=== PATIENT | male | born 1960 | race Caucasian/White ===

== ENCOUNTER 2018-09-11 06:20 | Day surgery (SDC) | payer BC, SELFPAY ==
[2018-09-11 06:35] VITALS: BP 116/79; PULSE 96; RESP 16; TEMP 37.3; O2SAT 98; BMI 35.4
--- NOTE | 2018-09-11 07:14 | PCM.HP.STD ---
Problem List (1) Personal history of colonic polyps Status: Acute History of Present Illness Date of Admission: 09/11/18 The patient is a 58 year old M who presents for a colonoscopy. Patient had a colonoscopy done 5 years ago and was noted to have colonic polyps and presents today for a repeat colonoscopy. He has had no problems with his bowel or bladder habits. He is not experiencing any abdominal pain. Past Medical History Allergies niacin Allergy (Verified 09/07/18 15:43) Other TURNED RED A BEET Home Medications: Ambulatory Orders Medication Instructions Recorded Amlodipine Besylate [Norvasc] 10 mg PO DAILY 09/07/18 Aspirin E.C. [Ecotrin] 81 mg PO DAILY@0800 09/07/18 Atorvastatin Calcium [Lipitor] 40 mg PO QHS 09/07/18 Hydrochlorothiazide [Hctz] 12.5 mg PO DAILY 09/07/18 Multivitamin [Daily Multiple 1 each PO DAILY 09/07/18 Vitamin] Smoking Status: Never smoker Tobacco Use: Non-smoker - *Family History Maternal History Items: No pertinent history Review of Systems Cardiovascular: Denies: Chest Pain, Chest Pressure, Chest Tightness, Palpitations Respiratory: Denies: Cough, Hemoptysis, Shortness of breath at rest, Shortness of breath upon exertion, Wheezing Gastrointestinal: Denies: Abdominal Pain, Constipation, Diarrhea, Hematemesis, Nausea, Melena, Vomiting VTE Information - Inpt Only VTE Present on Admission: No VTE Mechan Device Prophylaxis: None VTE Pharm Prophylaxis ordered?: No Reason prophylaxis not ordered:: Treatment Not Indicated Patient Problems: Active and Suspected Problems Personal history of colonic polyps (Acute) - Physical Exam General: Alert, Oriented x3 Lungs: Clear to auscultation Cardiovascular: Regular rate, Regular Rhythm, No murmurs Abdomen: Bowel Sounds Present, Soft, Non Tender, Non-Distended Vital Signs Temp Pulse Resp BP Pulse Ox 99.2 F H 96 16 116/79 98 09/11/18 06:35 09/11/18 06:35 09/11/18 06:35 09/11/18 06:35 09/11/18 06:35 Oxygen Delivery Method Room Air Weight: 247 lb 2.211 oz Body Mass Index (BMI) 35.4 Assessment/Plan All Active Problems Personal history of colonic polyps (Acute) My plan will be to perform a colonoscopy. Risk benefits have been reviewed and agrees to proceed.
--- NOTE | 2018-09-11 07:30 | COLBX_PTH ---
PATIENT: GABRIELA SHEIKH LOC: EN U#:[id number] AGE/SX: 58/M ROOM: RE09/11/[address]: Dr. Clark Parks MD : 1960 BED: DIS: 09/11/2018 SPEC #: [id number] RECD: 09/11/18 10:41 STATUS: ALEXX GAGANDEEP #: [id number] COCO: 09/11/18 07:[address]: Clark Parks DEPT: SURGICAL PATHOLOGY RECD BY: Demond Duenas ENTERED: 09/11/18 11:34 SP TYPE: COLON BX BUALDO DR: Dr. Ricky Lovell III, MD Tissues: A - Transverse colon B - Sigmoid colon biopsy Procedures: Surgery Specimen Level IV HEADER OPERATION: Colonoscopy, open access (MAC) PRE-OP DIAGNOSIS: Screening TISSUE SUBMITTED: A. Proximal transverse colon polyp, B. Sigmoid colon polyp MICROSCOPIC DIAGNOSIS A. Proximal transverse colon polyp, biopsy: Cauterized fragments of colonic mucosa with focal adenomatous change. B. Sigmoid colon polyp, biopsy: Tubular adenoma. AM:susan 09/12/18 MICROSCOPIC DESCRIPTION Slides are reviewed. GROSS DESCRIPTION A - Received in fixative is one container labeled with the patient's name and designated proximal transverse colon polyp. The specimen consists of multiple irregular fragments of light shanks soft tissue that in aggregate measure 1 x 0.2 x 0.1 cm. The specimen is totally submitted in one cassette. B - Received in fixative is one container labeled with the patient's name and designated sigmoid colon polyp. The specimen consists of multiple irregular fragments of light shanks soft tissue that in aggregate measure 0.6 x 0.6 x 0.2 cm. The specimen is totally submitted in one cassette. / AM:susan 09/11/18 TC:5 [facility]: [id number] x2
[2018-09-11 07:40] VITALS: BP 116/75; BP 116/79; PULSE 79; RESP 18; TEMP 36.7; O2SAT 92
--- NOTE | 2018-09-11 07:41 | OP.ENDO_ITS ---
Patient Name: Charlie Jacobo Procedure Date: 09/11/2018 7:17 AM Date of : 1960 Age: 58 Procedure: Colonoscopy Indications: High risk colon cancer surveillance: Personal history of colonic polyps Providers: Clark Parks MD Medicines: See the Anesthesia note for documentation of the administered medications Patient Profile: This is a 58 year old male. Refer to note in patient chart for documentation of history and physical. Last Colonoscopy: 5 years ago. Complications: No immediate complications. Procedure: Pre-Anesthesia Assessment: - Prior to the procedure, a History and Physical was performed, and patient medications and allergies were reviewed. The patient's tolerance of previous anesthesia was also reviewed. The risks and benefits of the procedure and the sedation options and risks were discussed with the patient. All questions were answered, and informed consent was obtained. Prior Anticoagulants: The patient has taken no previous anticoagulant or antiplatelet agents. ASA Grade Assessment: II - A patient with mild systemic disease. After reviewing the risks and benefits, the patient was deemed in satisfactory condition to undergo the procedure. After I obtained informed consent, the scope was passed under direct vision. Throughout the procedure, the patient's blood pressure, pulse, and oxygen saturations were monitored continuously. The colonoscope was introduced through the anus and advanced to 3 cm into the ileum. The colonoscopy was performed without difficulty. The patient tolerated the procedure well. The quality of the bowel preparation was good. Scope In: 7:23:52 AM Scope Withdrawal Time 0 hours 10 minutes 42 seconds Scope Out: 7:37:34 AM Total Procedure Duration Time 0 hours 13 minutes 42 seconds Findings: Two sessile polyps were found in the proximal sigmoid colon and proximal transverse colon. The polyps were 3 to 6 mm in size. These polyps were removed with a hot snare. Resection and retrieval were complete. Non-bleeding internal hemorrhoids were found during retroflexion. The hemorrhoids were mild and small. The exam was otherwise without abnormality. Impression: - Two 3 to 6 mm polyps in the proximal sigmoid colon and in the proximal transverse colon, removed with a hot snare. Resected and retrieved. - Non-bleeding internal hemorrhoids. - The examination was otherwise normal. Recommendation: - Discharge patient to home. - Resume previous diet. - Continue present medications. - Await pathology results. - Repeat colonoscopy in 3 years for surveillance. - Return to my office in 1 week. Procedure Code(s): --- Professional --- 91109, Colonoscopy, flexible; with removal of tumor(s), polyp(s), or other lesion(s) by snare technique Diagnosis Code(s): --- Professional --- Z86.010, Personal history of colonic polyps D12.5, Benign neoplasm of sigmoid colon D12.3, Benign neoplasm of transverse colon (hepatic flexure or splenic flexure) K64.8, Other hemorrhoids CPT copyright 2017 [employer]. All rights reserved. The codes documented in this report are preliminary and upon magnetic resonance imaging coordinator review may be revised to meet current compliance requirements. MD Clark Maier MD 09/11/2018 7:41:24 AM This report has been signed electronically. Number of Addenda: 0 Note Initiated On: 09/11/2018 7:17 AM
[2018-09-11 07:45] VITALS: BP 116/79; BP 117/73; PULSE 80; RESP 16; O2SAT 93
[2018-09-11 07:50] VITALS: BP 116/79; BP 121/77; PULSE 75; RESP 18; O2SAT 93
[2018-09-11 07:55] VITALS: BP 116/79; BP 150/88; PULSE 74; RESP 18; TEMP 37.4; O2SAT 98
[2018-09-11 08:11] VITALS: BP 116/79
== END 2018-09-11 08:22 | disposition home or self-care (01) ==
LOC: EN 06:21 → AC 06:23
PROVIDERS: Family Provider Family Medicine; PCP Family Medicine; Referring Provider Surgery; Visit Provider Surgery
PROC: 0DJD8ZZ Inspection of Lower Intestinal Tract, Via Natural or Artificial Opening Endoscopic (ICD-10-PCS; CPT 45378; principal; 2018-09-11 07:25)
DX: Z12.11 Encounter for screening for malignant neoplasm of colon (principal); D12.5 Benign neoplasm of sigmoid colon; D12.3 Benign neoplasm of transverse colon; K64.8 Other hemorrhoids; Z86.010 Personal history of colon polyps; Z79.82 Long term (current) use of aspirin; I10 Essential (primary) hypertension; E78.00 Pure hypercholesterolemia, unspecified
CPT/HCPCS: 45385; 88305; J1610

== ENCOUNTER 2019-02-25 13:26 | Emergency (ER) | payer BC, SELFPAY ==
[2019-02-25 13:27] VITALS: BP 157/86; PULSE 85; RESP 16; TEMP 36.6; O2SAT 97; BMI 35.4
--- NOTE | 2019-02-25 13:51 | RAD_ITS ---
STUDY: X-RAY CHEST REASON FOR EXAM: Male, 58 years old. Cough TECHNIQUE: PA and lateral views of the chest. COMPARISON: None. FINDINGS: On lateral view, there is mild reticulation projecting over the cardiac silhouette, likely lingular. There is no demonstrated pleural abnormality. Normal size heart. Normal mediastinum and netta. Normal visualized pulmonary arteries. Normal visualized aortic arch and descending thoracic aorta. Normal visualized thoracic spine. Normal visualized ribs, clavicles, and shoulders. There is no demonstrated abnormality of the visualized soft tissue structures of the upper abdomen. RAD/Chest PA and Lateral IMPRESSION: Mild lingular opacity could represent atelectasis versus early pneumonitis/pneumonia. Electronically Signed: Warner Underwood MD (Brooks) at 14:11 EST , Service support ,
--- NOTE | 2019-02-25 13:53 | ED.VIS.GEN ---
History of Present Illness Chief Complaint: Shortness of Breath Informant: Patient Onset: Month(s) Context: Gradual Onset Timing: Intermittent Narrative: Patient is a 58-year-old male with history of hypertension presenting with worsening cough. Patient states for the past 6 months at least he has had a dry cough in the mornings. He notes in the mornings he feels he is a lot of mucus in his throat. He sometimes feels short of breath because of the coughing. This seems to have progressed over the past month. He does correlate this with restarting lisinopril. Patient is placed on Zyrtec which he has been taking for the symptoms. He currently denies any symptoms including sore throat, fever, shortness of breath or chest pain. He notes earlier today he was sweating but states it was while he was helping his father move things in the basement in the basement was very hot. He felt that the sweating was appropriate for his amount of exertion. Patient is also concerned because he has a family history of COPD and a personal history of secondhand smoke exposure so he wanted to make sure that that was not what was wrong with him. Patient admits to reflux especially when he eats certain items. He takes Tums for the but is not on any regular antacid. He is never been evaluated for GERD. He is never had an EGD. Past Medical History - Allergies and Home Meds Allergies/Adverse Reactions: Allergies niacin Allergy (Verified 02/25/19 13:27) Other TURNED RED A BEET Primary Care Physician: Ricky Lovell III, MD [Primary Care Provider] - Smoking Status: Never smoker - Family History Maternal Family History: Reports: No pertinent history Review of Systems All systems negative except as indicated ENT: Reports: Sore throat Respiratory: Reports: Cough Physical Exam Vital Signs/Narrative: Vital Signs Temp Pulse Resp BP Pulse Ox 02/25/19 13:27 97.9 F 85 16 157/86 H 97 Inital Vital Signs reviewed: Yes General: Well nourished, Well developed, No Acute Distress Head: Normocephalic, Atraumatic Eyes: Perrl, EOMI ENT: Moist mucous membranes, No rhinorrhea, TM's clear, - - Mild cobblestoning and erythema of the pharynx Neck: Supple, Nontender Cardiovascular: Regular rate, Regular rhythm, No murmurs Respiratory: No distress, CTA bilaterally, Chest nontender. Negative for: Rhonchi, Wheezing, Chest tenderness Abdomen: Soft, Nontender, Nondistended, Normal bowel sounds Back: Nontender, Normal Inspection Extremities: Nontender, No edema Skin: Normal color, No rash Neurological: Alert, Oriented x3, Cranial nerves II-XII grossly intact, Normal Strength, Normal Sensation Psychological: Normal affect, Normal Mood Diagnostic/Tx/Re-eval Chest X-Ray - ED: 2 View, Read by Radiologist, Left Infiltrate - possible Diagnostic Data Chest X-Ray 02/25/19 13:51 IMPRESSION: Mild lingular opacity could represent atelectasis versus early pneumonitis/pneumonia. Electronically Signed: Warner Underwood MD (Brooks) at 14:11 EST , Service support , - Medical Decision Making He was evaluated for worsening of a chronic cough that he has in the morning. Seems to get better throughout the day. Patient illicits frequent heartburn and uses tums at home. Lungs are clear. He does not have associated fever or other symptoms consistent with pneumonia. Chest x-ray shows small area of atelectasis versus infiltrate versus inflammation of the lingula. Clinically patient does not have pneumonia. Patient is given a prescription for azithromycin to take if he starts to develop further signs of pneumonia such as fever, worsening productive cough or malaise. He is agreeable to this plan. I suspect his morning cough and sore throat is more from GERD. Patient be started on Pepcid. He does not have any chest pain I do not suspect ACS. He is encouraged heavily to follow-up with his primary care doctor. Patient is counseled on signs and symptoms requiring return to the emergency room. Patient verbalizes agreement and understand this plan. Patient discharged home in stable and improved condition. ED Disposition - Plan for ED Patient: Disposition: Home or Assisted Living Diagnosis: Cough in adult Instructions: COUGH, Chronic, Uncertain Cause, (Adult) Prescriptions: Famotidine [Pepcid] 20 mg PO BID #28 tab Prescription Printed Azithromycin [Zithromax Z-Vladislav] 250 mg PO UD #1 box Prescription Printed Referrals: Ricky Lovell III, MD [Primary Care Provider] - Additional Instructions: I suspect your cough might be from acid reflux. That is why you have been started on Pepcid. Your x-ray showed a possible subtle area of pneumonia versus atelectasis (which is benign). You are given a course of oixw-lwy-imx antibiotics. If you develop further symptoms of pneumonia such as fever, worsening cough/sputum production or shortness of breath please take the complete course of antibiotics. Please follow-up with your primary care doctor within the next 2 weeks.
== END 2019-02-25 15:18 | disposition home or self-care (01) ==
PROVIDERS: Emergency Provider Emergency Medicine; Family Provider Family Medicine; PCP Family Medicine
DX: R05 Cough (principal); I10 Essential (primary) hypertension
CPT/HCPCS: 71046; 99282

== ENCOUNTER 2020-07-08 16:26 | Outpatient (RCR) | payer BC, SELFPAY ==
[2020-07-08] MEDS: COVID-19 VACC, MRNA(PFIZER)/PF 30 MCG/0.3 ML SYRINGE IM (17:09)
[2020-07-29] MEDS: COVID-19 VACC, MRNA(PFIZER)/PF 30 MCG/0.3 ML SYRINGE IM (16:54)
== END 2020-07-08 23:59 ==
LOC: IMMUN 16:26
PROVIDERS: PCP Family Medicine; Visit Provider Family Medicine
DX: Z23 Encounter for immunization (principal)
CPT/HCPCS: 0001A; 0002A; 91300

== ENCOUNTER 2021-10-02 06:22 | Day surgery (SDC) | payer OTHER, SELFPAY ==
[2021-10-02] VITALS (10 sets, daily range): BP systolic 81–141; BP diastolic 60–85; PULSE 63–80; RESP 16–17; TEMP 36.7–37.2; O2SAT 96–97; BMI 34.5
--- NOTE | 2021-10-02 06:52 | PCM.HP.STD ---
HPI - General HPI Narrative GABRIELA SHEIKH, is a 61 M who presents for surveillance colonoscopy. He has previously had a history of colon polyps. Most recent colonoscopy was August 2018. He otherwise enjoys good health. He denies bright red blood per rectum or melena. [facility] Medical History (Updated 09/29/21 @ 10:46 by Ashwini Oliveros) Allergic bronchitis without complication GERD (gastroesophageal reflux disease) High cholesterol History of pain when walking History of stress test Hypertension Non-smoker Primary osteoarthritis, unspecified shoulder Pure hypercholesterolemia, unspecified Wears contact lenses Home Medications amlodipine 10 mg PO QHS 09/07/18 [History Last Taken Unknown] aspirin 81 mg PO DAILY@0800 09/07/18 [History Last Taken Unknown] atorvastatin 40 mg PO QHS 09/07/18 [History Last Taken Unknown] hydrochlorothiazide 12.5 mg PO DAILY 09/07/18 [History Last Taken Unknown] multivitamin 1 ea PO DAILY 09/07/18 [History Last Taken Unknown] lisinopril 5 mg PO QHS 02/25/19 [History Last Taken Unknown] Lactobacill acidophilus-L.helvetic-B.bifidum 250 million cell capsule 1 cap PO DAILY 09/01/21 [History Last Taken Unknown] omega 9-wvm-hwq-fish oil 300 mg-1,000 mg capsule 1 cap PO DAILY 09/01/21 [History Last Taken 09/28/21] omeprazole 20 mg capsule,delayed release 20 mg PO DAILY 09/01/21 [History Last Taken Unknown] Allergy/AdvReac Type Severity Reaction Status Date / Time niacin Allergy Other Verified 09/01/21 09:49 Surgical History (Updated 09/29/21 @ 10:46 by Ashwini Oliveros) History of detached retina repair History of vasectomy Hx of colonoscopy with polypectomy Social History Smoking Status: Never smoker ROS Constitutional Constitutional: Reports systems reviewed and no addt'l complaints, except as documented Cardiovascular Cardiovascular: Denies chest pain Respiratory/Chest Respiratory/Chest: Denies shortness of breath at rest Gastrointestinal Gastrointestinal: Denies abdominal pain, change in bowel habits, hematochezia or melena Physical Exam Const alert, oriented x3 and no apparent distress General Appearance: cooperative and comfortable Eyes General Eye: normal appearance of both eyes Neck General: normal visual inspection Chest inspection of chest normal Resp Effort and Inspection: able to speak in complete sentences and symmetric chest movement Auscultation: clear to auscultation bilaterally Cardio regular rate and regular rhythm GI soft to palpation, non-tender and non-distended Extremity no calf tenderness Neuro oriented x3 Psych thought process normal Assessment & Plan Assessment/Plan (1) Personal history of colonic polyps: PLAN: The patient presents via open access today. We plan to pursue a surveillance colonoscopy because of personal history of colon polyps. He is aware of the technique, benefit, risk, alternatives. We will proceed as noted. Hang Lovell M.D., F.A.C.S.
[2021-10-02] MEDS: Lactated Ringers 1,000 ML 15 ML IV (07:02)
[2021-10-02] MEDS: Midazolam 5 MG/ML Syringe (07:25)
--- NOTE | 2021-10-02 07:30 | COLBX_PTH ---
PATIENT: GABRIELA SHEIKH LOC: EN U#:[id number] AGE/SX: 61/M ROOM: RE10/02/[address]: Dr. Hang Lovell MD : 1960 BED: DIS: 10/02/2021 SPEC #: [id number] RECD: 10/02/21 12:16 STATUS: ALEXX GAGANDEEP #: [id number] COCO: 10/02/21 07:[address]: Hang Lovell DEPT: SURGICAL PATHOLOGY RECD BY: Pari Jones ENTERED: 10/02/21 12:41 SP TYPE: COLON BX OTHR DR: Dr. Navneet Anderson MD Tissues: A - COLON BIOPSY B - Transverse colon C - Transverse colon Procedures: Surgery Specimen Level IV HEADER OPERATION: Colonoscopy ? open access (MOD) PRE-OP DIAGNOSIS: Colonic polyps TISSUE SUBMITTED: A ? Polyp at hepatic flexure biopsy, B ? Polyp at mid transverse biopsy, C ? Polyp at mid transverse colon MICROSCOPIC DIAGNOSIS A. Polyp at hepatic flexure, biopsy: Tubular adenoma. B. Mid transverse colon polyp, biopsy: Tubular adenoma. C. Polyp at mid transverse colon, biopsy: Fragments of tubular adenoma. СЕРГЕЙ:susan 10/05/2021 MICROSCOPIC DESCRIPTION Slides are reviewed. GROSS DESCRIPTION A - Received in fixative is one container labeled with the patient's name and designated biopsy hepatic flexure polyp. The specimen consists of one irregular fragment of light shanks soft tissue that measures 0.4 x 0.4 x 0.1 cm. The specimen is totally submitted in one cassette. B - Received in fixative is one container labeled with the patient's name and designated biopsy mid transverse polyp. The specimen consists of one irregular fragment of light shanks soft tissue that measures 0.3 x 0.3 x 0.1 cm. The specimen is totally submitted in one cassette. C - Received in fixative is one container labeled with the patient's name and designated polyp at mid transverse colon. The specimen consists of two irregular fragments of light shanks soft tissue that in aggregate measure 0.9 x 0.5 x 0.1 cm. The specimen is totally submitted in one cassette. / СЕРГЕЙ:susan 10/02/2021 TC:1 CPT: 16976 x3
--- NOTE | 2021-10-02 07:58 | OP.COLON_ITS ---
Patient Name: Charlie Jacobo Procedure Date: 10/02/2021 7:26 AM Date of : 1960 Age: 61 Procedure: Colonoscopy Indications: High risk colon cancer surveillance: Personal history of colonic polyps Providers: Hang Lovell MD Medicines: Midazolam 4 mg IV, Meperidine 100 mg IV Patient Profile: Last Colonoscopy: August 2018. Complications: No immediate complications. Procedure: Pre-Anesthesia Assessment: - Prior to the procedure, a History and Physical was performed, and patient medications and allergies were reviewed. The patient's tolerance of previous anesthesia was also reviewed. The risks and benefits of the procedure and the sedation options and risks were discussed with the patient. All questions were answered, and informed consent was obtained. Prior Anticoagulants: The patient has taken no previous anticoagulant or antiplatelet agents. ASA Grade Assessment: II - A patient with mild systemic disease. After reviewing the risks and benefits, the patient was deemed in satisfactory condition to undergo the procedure. After I obtained informed consent, the scope was passed under direct vision. Throughout the procedure, the patient's blood pressure, pulse, and oxygen saturations were monitored continuously. The colonoscope was introduced through the anus and advanced to the cecum, identified by appendiceal orifice and ileocecal valve. The colonoscopy was performed without difficulty. The patient tolerated the procedure well. The quality of the bowel preparation was good. The ileocecal valve and the appendiceal orifice were photographed. Moderate Sedation: Moderate (conscious) sedation was personally administered by the endoscopist. The following parameters were monitored: oxygen saturation, heart rate, blood pressure, and response to care. Total physician intraservice time was 15 minutes. Scope In: 7:33:55 AM Scope Withdrawal Time 0 hours 11 minutes 13 seconds Scope Out: 7:51:10 AM Total Procedure Duration Time 0 hours 17 minutes 15 seconds Findings: The digital rectal exam findings include non-thrombosed internal hemorrhoids and internal hemorrhoids that prolapse with straining, but spontaneously regress to the resting position (Grade II). Pertinent negatives include normal prostate (size, shape, and consistency). A 4 mm polyp was found in the hepatic flexure. The polyp was sessile. The polyp was removed with a cold biopsy forceps. Resection and retrieval were complete. A 5 mm polyp was found in the mid transverse colon. The polyp was sessile. The polyp was removed with a cold biopsy forceps. Resection and retrieval were complete. A 9 mm polyp was found in the mid transverse colon. The polyp was sessile. The polyp was removed with a hot snare. Resection and retrieval were complete. To prevent bleeding post-intervention, one hemostatic clip was successfully placed. There was no bleeding at the end of the procedure. Impression: - Non-thrombosed internal hemorrhoids and internal hemorrhoids that prolapse with straining, but spontaneously regress to the resting position (Grade II) found on digital rectal exam. - One 4 mm polyp at the hepatic flexure, removed with a cold biopsy forceps. Resected and retrieved. - One 5 mm polyp in the mid transverse colon, removed with a cold biopsy forceps. Resected and retrieved. - One 9 mm polyp in the mid transverse colon, removed with a hot snare. Resected and retrieved. Clip was placed. Recommendation: - Repeat colonoscopy in 5 years for surveillance. - Telephone my office for pathology results in 1 week. - Continue present medications. Procedure Code(s): --- Professional --- 97853, Colonoscopy, flexible; with removal of tumor(s), polyp(s), or other lesion(s) by snare technique 60016, 61, Colonoscopy, flexible; with biopsy, single or multiple 32015, 61, Moderate sedation services provided by the same physician or other qualified health career technical education teacher performing the diagnostic or therapeutic service that the sedation supports, requiring the presence of an independent trained observer to assist in the monitoring of the patient's level of consciousness and physiological status; initial 15 minutes of intraservice time, patient age 5 years or older Diagnosis Code(s): --- Professional --- Z86.010, Personal history of colonic polyps K64.1, Second degree hemorrhoids D12.3, Benign neoplasm of transverse colon (hepatic flexure or splenic flexure) CPT copyright 2017 [employer]. All rights reserved. The codes documented in this report are preliminary and upon associate professor of library science review may be revised to meet current compliance requirements. Hang Lovell MD 10/02/2021 7:58:00 AM This report has been signed electronically. Number of Addenda: 0 Note Initiated On: 10/02/2021 7:26 AM
--- NOTE | 2021-10-02 07:58 | OP.CCLET_ITS ---
10/02/2021 Navneet Anderson Md Re : Colonoscopy procedure for Charlie Mercedes Justin This procedure was performed on Saturday, October 02, 2021. My impressions and recommendations are as follows: Impressions : - Non-thrombosed internal hemorrhoids and internal hemorrhoids that prolapse with straining, but spontaneously regress to the resting position (Grade II) found on digital rectal exam. - One 4 mm polyp at the hepatic flexure, removed with a cold biopsy forceps. Resected and retrieved. - One 5 mm polyp in the mid transverse colon, removed with a cold biopsy forceps. Resected and retrieved. - One 9 mm polyp in the mid transverse colon, removed with a hot snare. Resected and retrieved. Clip was placed. Recommendations : - Repeat colonoscopy in 5 years for surveillance. - Telephone my office for pathology results in 1 week. - Continue present medications. My findings are described in the full procedure note, which is enclosed. If I can be of further assistance, please feel free to contact me at Doctor phone number(s): Work: . Sincerely, Hang Lovell MD 10/02/2021 7:58:00 AM This report has been signed electronically.
== END 2021-10-02 09:00 | disposition home or self-care (01) ==
LOC: EN 06:23 → AC 06:27
PROVIDERS: PCP Family Medicine; Referring Provider Family Medicine; Visit Provider Surgery
PROC: 0DJD8ZZ Inspection of Lower Intestinal Tract, Via Natural or Artificial Opening Endoscopic (ICD-10-PCS; CPT 45378; principal; 2021-10-02 07:25)
DX: Z12.11 Encounter for screening for malignant neoplasm of colon (principal); Z86.010 Personal history of colon polyps; I10 Essential (primary) hypertension; K64.8 Other hemorrhoids; E78.00 Pure hypercholesterolemia, unspecified; D12.3 Benign neoplasm of transverse colon
CPT/HCPCS: 45385; 45380; 88305; 99152; 99153; J7120

== ENCOUNTER → 2022-02-16 | Outpatient (CLI) | payer OTHER, SELFPAY ==
[2022-02-16 10:45] LABS: ALB/GLOB Ratio 1.1 RATIO (0.9-2.4); AST(SGOT) 19 U/L (15-37); Alanine Aminotransfer ALT/SGPT 33 U/L (16-61); Albumin, Serum 3.9 g/dL (3.2-5.0); Alkaline Phosphatase 74 U/L (45-117); Anion Gap 8 (5-15); BUN 13 mg/dL (7-18); BUN/Creat Ratio 12.9 RATIO (10-20); Calcium,Total 9.5 mg/dL (8.5-10.1); Chloride 107 mmol/L (98-107); Cholesterol 128 mg/dL (200); Creatinine, Serum 1.01 mg/dL (0.70-1.30); EST Glomerular Filtration Rate 80 mL/min (>60); Est Glom Filt Rate - Afr Amer 97 mL/min (>60); Globulin 3.5 g/dL (2.2-4.2); Glucose 105 mg/dL (74-106); High Density Lipoprotein 47 mg/dL; PSA,Total - Annual Screen 3.26 ng/mL (0.00-4.00); Potassium 3.8 mmol/L (3.5-5.1); Protein, Total 7.4 g/dL (6.4-8.2); Sodium Level 140 mmol/L (136-145); Triglycerides 173 mg/dL; Very Low Density Lipoprotein 35 mg/dL (5-40)
[2022-02-16 10:58] LABS: Microalbumin,Random Urine 16.9 mg/L (NO RANGE EST.); Microalbumin:Creatinine Ratio 22.1 mg/g CRE (<30 mg/g CRE)
== END | disposition home or self-care (01) ==
LOC: MFPLAB 08:04
PROVIDERS: PCP Family Medicine; Referring Provider Family Medicine; Visit Provider Family Medicine
DX: Z00.00 Encounter for general adult medical examination without abnormal findings (principal); Z12.5 Encounter for screening for malignant neoplasm of prostate
CPT/HCPCS: 36415; 80053; 80061; 82043; 82570; 84153; G0103

== ENCOUNTER → 2022-09-17 | Outpatient (CLI) | payer OTHER, SELFPAY ==
--- NOTE | 2022-09-17 16:30 | RAD_ITS ---
STUDY: X-RAY - PARANASAL SINUSES REASON FOR EXAM: Male, 62 years old. recurrent sinusitis TECHNIQUE: 3 view(s) of the paranasal sinuses were obtained. COMPARISON: None. FINDINGS: Normal visualized frontal, maxillary, ethmoidal and sphenoid sinuses. Normal visualized facial bones. The soft tissue structures are unremarkable. RAD/Sinuses min 3 Views IMPRESSION: Normal x-rays of the paranasal sinuses. Electronically Signed: Abdullahi Samuels MD at 19:36 EDT ,
[2022-09-17 18:01] LABS: Anion Gap 11 (5-15); BUN 11 mg/dL (7-18); BUN/Creat Ratio 11.1 RATIO (10-20); Calcium,Total 9.3 mg/dL (8.5-10.1); Chloride 106 mmol/L (98-107); Creatinine, Serum 0.99 mg/dL (0.70-1.30); EST Glomerular Filtration Rate 82 mL/min (>60); Est Glom Filt Rate - Afr Amer 99 mL/min (>60); Glucose 122 mg/dL (74-106); Potassium 3.8 mmol/L (3.5-5.1); Sodium Level 138 mmol/L (136-145)
== END | disposition home or self-care (01) ==
LOC: MTLAB 16:23
PROVIDERS: PCP Family Medicine; Referring Provider Family Medicine; Visit Provider Family Medicine
DX: I10 Essential (primary) hypertension (principal); J30.9 Allergic rhinitis, unspecified
CPT/HCPCS: 36415; 70220; 80048

== ENCOUNTER → 2023-02-17 | Outpatient (CLI) | payer OTHER, SELFPAY ==
[2023-02-17 11:34] LABS: ALB/GLOB Ratio 1.2 RATIO (0.9-2.4); AST(SGOT) 14 U/L (15-37); Alanine Aminotransfer ALT/SGPT 32 U/L (16-61); Albumin, Serum 3.9 g/dL (3.2-5.0); Alkaline Phosphatase 92 U/L (45-117); Anion Gap 6 (5-15); BUN 12 mg/dL (7-18); BUN/Creat Ratio 11.7 RATIO (10-20); Calcium,Total 9.2 mg/dL (8.5-10.1); Chloride 108 mmol/L (98-107); Cholesterol 116 mg/dL (200); Creatinine, Serum 1.03 mg/dL (0.70-1.30); EST Glomerular Filtration Rate 78 mL/min (>60); Est Glom Filt Rate - Afr Amer 95 mL/min (>60); Globulin 3.3 g/dL (2.2-4.2); Glucose 108 mg/dL (74-106); High Density Lipoprotein 47 mg/dL; Potassium 4.2 mmol/L (3.5-5.1); Protein, Total 7.2 g/dL (6.4-8.2); Sodium Level 141 mmol/L (136-145); Triglycerides 182 mg/dL; Very Low Density Lipoprotein 36 mg/dL (5-40)
[2023-02-17 11:36] LABS: Microalbumin,Random Urine 37.9 mg/L (NO RANGE EST.)
== END | disposition home or self-care (01) ==
LOC: MFPLAB 08:00
PROVIDERS: PCP Family Medicine; Visit Provider Family Medicine
DX: I10 Essential (primary) hypertension (principal); E78.00 Pure hypercholesterolemia, unspecified
CPT/HCPCS: 36415; 80053; 80061; 82043

== ENCOUNTER → 2023-08-29 | Outpatient (CLI) | payer OTHER, SELFPAY ==
[2023-08-29 11:01] LABS: Anion Gap 5 (5-15); BUN 17 mg/dL (7-18); BUN/Creat Ratio 15.9 RATIO (10-20); Calcium,Total 9.4 mg/dL (8.5-10.1); Chloride 107 mmol/L (98-107); Creatinine, Serum 1.07 mg/dL (0.70-1.30); EST Glomerular Filtration Rate 75 mL/min (>60); Est Glom Filt Rate - Afr Amer 90 mL/min (>60); Glucose 111 mg/dL (74-106); Sodium Level 139 mmol/L (136-145)
[2023-08-29 11:06] LABS: Hemoglobin A1c 5.2 % (3.8-5.6)
== END | disposition home or self-care (01) ==
LOC: MFPLAB 08:52
PROVIDERS: PCP Family Medicine; Visit Provider Family Medicine
DX: I10 Essential (primary) hypertension (principal); E66.01 Morbid (severe) obesity due to excess calories
CPT/HCPCS: 36415; 80048; 83036

== ENCOUNTER → 2024-03-06 | Outpatient (CLI) | payer OTHER, SELFPAY ==
[2024-03-06 18:08] LABS: Anion Gap 8 (5-15); BUN 17 mg/dL (7-18); BUN/Creat Ratio 16.8 RATIO (10-20); Calcium,Total 9.2 mg/dL (8.5-10.1); Chloride 106 mmol/L (98-107); Creatinine, Serum 1.01 mg/dL (0.70-1.30); EST Glomerular Filtration Rate 80 mL/min (>60); Est Glom Filt Rate - Afr Amer 96 mL/min (>60); Glucose 101 mg/dL (74-106); Potassium 3.5 mmol/L (3.5-5.1); Sodium Level 140 mmol/L (136-145)
== END | disposition home or self-care (01) ==
LOC: MFPLAB 16:09
PROVIDERS: PCP Family Medicine; Visit Provider Family Medicine
DX: I10 Essential (primary) hypertension (principal)
CPT/HCPCS: 36415; 80048

== ENCOUNTER → 2024-10-09 | Outpatient (CLI) | payer OTHER, SELFPAY ==
--- OUTSIDE RECORDS SUMMARY | 2024-10-09 08:39 | XMS RPT_ITS | CCD ---
Author Organization [facility] Care Team Providers Care Home Health Clinical Liaison Name Role Phone Josefina Villalba Attending Provider Unavailable Dr. Hang Lovell Attending Provider [phone] Dr. Hang Lovell Other Provider Dr. Navneet Anderson Primary Care Provider Dr. Navneet Anderson Referring Provider Navneet Anderson Primary Care Unavailable Navneet Anderson Attending Unavailable Navneet Anderson Primary Care Unavailable Navneet Anderson Attending Unavailable Allergies Allergy Classification Reported Allergen(s) Allergy Type Date of Onset Reaction(s) Facility (5 sources) Niacin Drug Allergy 10-02-2021 Other [facility] (1 source) Niacin Drug Allergy 10-02-2021 [facility] Repository Medications Current Medications Medication Drug Class(es) Dates Sig (Normalized) Sig (Original) amLODIPine 10 mg oral tablet (5 sources) Dihydropyridine Calcium Channel Mily Start: 09-07-2018 take 10 mg by mouth at bedtime Amlodipine Active 10 MG PO AT BEDTIME September 07, 2018 12:00am aspirin 81 mg delayed release oral tablet (5 sources) Platelet Aggregation Inhibitor, Nonsteroidal Anti-inflammatory Drug Start: 09-07-2018 take 81 mg by mouth once daily Aspirin Active 81 MG PO DAILY@0800 September 07, 2018 12:00am atorvastatin 40 mg oral tablet (5 sources) HMG-CoA Reductase Inhibitor Start: 09-07-2018 take 40 mg by mouth at bedtime Atorvastatin Active 40 MG PO AT BEDTIME September 07, 2018 12:00am [place] 3-Azi-Lkz-Fish Oil (5 sources) Start: 09-01-2021 take 300-1000 mg by mouth once daily [place] 4-Mdu-Zkp-Fish Oil (Fish Oil) 300-1,000 mg capsule Active 1 CAP PO DAILY September 01, 2021 9:45am Start: 09-01-2021 take 300-1000 mg by mouth once daily [place] 2-Ukk-Gjz-Fish Oil (Fish Oil) 300-1,000 mg capsule Active 1 CAP PO DAILY September 01, 2021 12:00am hydroCHLOROthiazide 25 mg oral tablet (5 sources) Thiazide Diuretic Start: 09-07-2018 take 12.5 mg by mouth once daily Hydrochlorothiazide Active 12.5 MG PO DAILY September 07, 2018 12:00am L.Acidophilus,Helvet-B.B ifidum (Acidophilus Probiotic Complex) 250 million cell capsule (5 sources) Start: 09-01-2021 take 1 capsule by mouth once daily L.Acidophilus,Helvet-B. Bifidum (Acidophilus Probiotic Complex) 250 million cell capsule Active 1 CAP PO DAILY September 01, 2021 9:46am Start: 09-01-2021 take 1 capsule by mouth once daily L.Acidophilus,Helvet-B.Bifidum (Acidophi ashley Probiotic Complex) 250 million cell capsule Active 1 CAP PO DAILY September 01, 2021 12:00am lisinopril 5 mg oral tablet (5 sources) Angiotensin Converting Enzyme Inhibitor Start: 02-25-2019 take 5 mg by mouth at bedtime Lisinopril Active 5 MG PO AT BEDTIME February 25, 2019 12:00am Multivitamin preparation (5 sources) Start: 09-07-2018 Multivitamin Active 1 EACH PO DAILY September 07, 2018 3:43pm Start: 09-07-2018 Multivitamin A ctive 1 EACH PO DAILY September 07, 2018 12:00am omeprazole 20 mg delayed release oral capsule (5 sources) Proton Pump Inhibitor Start: 09-01-2021 take 20 mg by mouth once daily Omeprazole Active 20 MG PO DAILY September 01, 2021 12:00am Completed/Discontinued Medications Medication Drug Class(es) Dates Sig (Normalized) Sig (Original) cetirizine hydrochloride 10 mg oral capsule (5 sources) Histamine-1 Receptor Antagonist Start: 02-25-2019 End: 09-01-2021 take 10 mg by mouth once daily Cetirizine Discontinued 10 MG PO DAILY February 25, 2019 12:00am September 01, 2021 9:44am Problems Problem Classification Problem Date Documented Da te Episodic/Chronic Essential hypertension (1 source) Essential (primary) hypertension; Translations: [Essential (primary) hypertension] Onset: 04-02-2024 Chronic Other and unspecified benign neoplasm (5 sources) History of polyp of colon; Translations: [Personal history of colonic polyps] 02-25-2019 Episodic Other and unspecified benign neoplasm (1 source) Personal history of colonic polyps; Translations: [Personal history of colonic polyps] Episodic Other lower respiratory disease (5 sources) Cough; Translations: [Cough in adult] 02-26-2019 Episodic Other screening for suspected conditions (not mental disorders or infectious disease) (5 sources) Patient encounter status; Translations: [Encounter for screening for malignant neoplasm of colon] 09-01-2021 Episodic Results Test Name Value Interpretation Reference Range Facility Basic Metabolic Profile (BMP )on 03-06-2024 BUN/CRE 16.8 RATIO Normal 10-20 [facility] Comment on above: Order Comment: Order Date: 03/06/24 Order Info: 0667-1 - BMP Performed By: #### L 500.2500 #### [facility] [address] [place], [address] CA,Total 9.2 mg/dL Normal 8.5-10.1 [facility] Comment on above: Order Comment: Order Date: 03/06/24 Order Info: 0667- - BMP Performed By: #### L 500.2500 #### [facility] [address] [place], [address] Chloride [Moles/Vol] 106 mmol/L Normal 98-107 [facility] Comment on above: Order Comment: Order Date: 03/06/24 Order Info: 0667- - BMP Performed By: #### L 500.2500 #### [facility] [address] [place], [address] CO2 [Moles/Vol] 26.0 mmol/L Normal 21.0-32.0 [facility] Comment on above: Order Comment: Order Date: 03/06/24 Order Info: 0667- - BMP Performed By: #### L 500.2500 #### [facility] [address] [place], [place], [address] Creatinine [Mass/Vol] 1.01 mg/dL Normal 0.70-1.30 [facility] Comment on above: Order Comment: Order Date: 03/06/24 Order Info: 0667- - [facility] Result Comment: The validity of the calculated GFR GFRAA in patients over 70 years has not been determined. Clinical correlation is essential. Performed By: #### L 500.2500 #### [facility] [address] [place], [address] EST GFR - AA 96 mL/min Normal >60 [facility] Comment on above: Order Comment: Order Date: 03/06/24 Order Info: 06 - [facility] Result Comment: Afri can Grenadian GFR Calc Performed By: #### L 500.2500 #### [facility] [address] [place], [address] GAP 8 Normal 5-15 [facility] Comment on above: Order Comment: Order Date: 03/06/24 Order Info: 0667 - BMP Performed By: #### L 500.2500 #### [facility] [address] [place], [address] GFR/1.73 sq M.predicted among non-blacks MDRD (S/P/Bld) [Vol rate/Area] 80 mL/min/{1.73_m2} Normal >60 [facility] Comment on above: Order Comment: Order Date: 03/06/24 Order Info: 0667- - [facility] Result Comment: Non- GFR Calc Performed By: #### L 500.2500 #### [facility] [address] [place], [place], [id number] ([address] Glucose [Mass/Vol] 101 mg/dL Normal 74-106 [facility] Comment on above: Order Comment: Order Date: 03/06/24 Order Info: 0667- - BMP Result Comment: Fast ing Glucose result from 100 to 125 mg/dL suggests IMPAIRED HOMEOSTASIS per A.D.A. criteria. Performed By: #### L 500.2500 #### [facility] [address] [place], [address] Potassium [Moles/Vol] 3.5 mmol/L Normal 3.5-5.1 [facility] Comment on above: Order Comment: Order Date: 03/06/24 Order Info: 666-04 - BMP Performed By: #### L 500.2500 #### [facility] [address] [place], [address] Sodium [Moles/Vol] 140 mmol/L Normal 136-145 [facility] Comment on above: Order Comment: Order Date: 03/06/24 Order Info: 666-04 - BMP Performed By: #### L 500.2500 #### [facility] [address] [place], [address] Urea nitrogen [Mass/Vol] 17 mg/dL Normal 7-18 [facility] Comment on above: Order Comment: Order Date: 03/06/24 Order Info: 666-04 - BMP Performed By: #### L 500.2500 #### [facility] [address] [place], [address] Basic Metabolic Profile (BMP )on 08-29-2023 BUN/CRE 15.9 RATIO Normal 10-20 [facility] Comment on above: Order Comment: Order Date: 08/29/23 Order Info: 666-04 - BMP Performed By: #### L 500.2500, [id number] #### [facility] [address] [place], [address] CA,Total 9.4 mg/dL Normal 8.5-10.1 [facility] Comment on above: Order Comment: Order Date: 08/29/23 Order Info: 666-04 - BMP Performed By: #### L 500.2500, [id number] #### [facility] [address] [place], [address] Chloride [Moles/Vol] 107 mmol/L Normal 98-107 [facility] Comment on above: Order Comment: Order Date: 08/29/23 Order Info: 0667 - BMP Performed By: #### L 500.2500, [id number] #### [facility] [address] [place], [address] CO2 [Moles/Vol] 27.0 mmol/L Normal 21.0-32.0 [facility] Comment on above: Order Comment: Order Date: 08/29/23 Order Info: 666-04 - BMP Performed By: #### L 500.2500, [id number] #### [facility] [address] [place], [address] Creatinine [Mass/Vol] 1.07 mg/dL Normal 0.70-1.30 [facility] Comment on above: Order Comment: Order Date: 08/29/23 Order Info: 666-04 - BMP Result Comment: The validity of the calculated GFR GFRAA in patients over 70 years has not been determined. Clinical correlation is essential. Performed By: #### L 500.2500, [id number] #### [facility] [address] [place], [address] EST GFR - AA 90 mL/min Normal >60 [facility] Comment on above: Order Comment: Order Date: 08/29/23 Order Info: 0667- - BMP Result Comment: Afri can Grenadian GFR Calc Performed By: #### L 500.2500, [id number] #### [facility] [address] [place], [address] GAP 5 Normal 5-15 [facility] Comment on above: Order Comment: Order Date: 08/29/23 Order Info: 06 - BMP Performed By: #### L 500.2500, [id number] #### [facility] [address] [place], [address] GFR/1.73 sq M.predicted among non-blacks MDRD (S/P/Bld) [Vol rate/Area] 75 mL/min/{1.73_m2} Normal >60 [facility] Comment on above: Order Comment: Order Date: 08/29/23 Order Info: 0667- - BMP Result Comment: Non- GFR Calc Performed By: #### L 500.2500, [id number] #### [facility] [address] [place], [address] Glucose [Mass/Vol] 111 mg/dL High 74-106 [facility] Comment on above: Order Comment: Order Date: 08/29/23 Order Info: 0667- - BMP Result Comment: Fast ing Glucose result from 100 to 125 mg/dL suggests IMPAIRED HOMEOSTASIS per A.D.A. criteria. Performed By: #### L 500.2500, [id number] #### [facility] [address] [place], [address] Potassium [Moles/Vol] 4.0 mmol/L Normal 3.5-5.1 [facility] Comment on above: Order Comment: Order Date: 08/29/23 Order Info: 0667- - BMP Performed By: #### L 500.2500, [id number] #### [facility] [address] [place], [address] Sodium [Moles/Vol] 139 mmol/L Normal 136-145 [facility] Comment on above: Order Comment: Order Date: 08/29/23 Order Info: 0667- - BMP Performed By: #### L 500.2500, [id number] #### [facility] [address] [place], [address] Urea nitrogen [Mass/Vol] 17 mg/dL Normal 7-18 [facility] Comment on above: Order Comment: Order Date: 08/29/23 Order Info: 0667- - BMP Performed By: #### L 500.2500, [id number] #### [facility] [address] [place], [place], [address] Basophil percentageOrdered B y: Navneet Anderson on 08-29-2023 Chloride [Moles/Vol] 107 mmol/L 98-107 [facility] Glucose [Mass/Vol] 111 mg/dL 74-106 [facility] Comment on above: Fasting Glucose resu lt from 100 to 125 mg/dL suggests IMPAIRED HOMEOSTASIS per A.D.A. criteria. Potassium [Moles/Vol] 4.0 mmol/L 3.5-5.1 [facility] Sodium [Moles/Vol] 139 mmol/L 136-145 [facility] Hemoglobin A1con 08-29-2023 HbA1c (Bld) [Mass fraction] 5.2 % Normal 3.8-5.6 [facility] Comment on above: Order Comment: Order Date: 08/29/23 Order Info: 4548-4 - A1C Result Comment: Norm al < 5.7 % Prediabetic 5.7 - 6.4 % Diabetic >or= 6.5 % Please note range changes. Performed By: #### L 500.2500, [id number] #### [facility] [address] [place], [place], [address] Laboratory - Chemistry and C hemistry - challengeOrdered By: Navneet Anderson on 08-29-2023 CO2 [Moles/Vol] 27.0 mmol/L 21.0-32.0 [facility] Urea nitrogen/Creatinine [Mass ratio] 15.9 mg/mg 10-20 [facility] No Panel InformationOrdered By: Navneet Anderson on 08-29-2023 Estimated GFR (MDRD) Amer 90 mL/min >60 [facility] Comment on above: GFR Calc Estimated GFR (MDRD) Non-Af Amer 75 mL/min >60 [facility] Comment on above: Non- GFR Calc Serum or plasma calcium zahida urement (mass/volume)Ordered By: Navneet Anderson on 08-29-2023 Calcium [Mass/Vol] 9.4 mg/dL 8.5-10.1 [facility] Serum or plasma creatinine m easurement (mass/volume)Ordered By: Navneet Anderson on 08-29-2023 Creatinine [Mass/Vol] 1.07 mg/dL 0.70-1.30 [facility] Comment on above: The validity of the calculated GFR & GFRAA in patients over 70 years has not been determined. Clinical correlation is essential. Serum or plasma urea nitroge n measurement (mass/volume)Ordered By: Navneet Anderson on 08-29-2023 Urea nitrogen [Mass/Vol] 17 mg/dL 7-18 [facility] Thin prep Papanicolaou smear with manual screeningOrdered By: Navneet Anderson on 08-29-2023 Thin prep Papanicolaou smear with manual screening 5 5-15 [facility] Whole blood hemoglobin A1c/t otal hemoglobin ratio (mass fraction)Ordered By: Navneet Anderson on 08-29-2023 HbA1c (Bld) [Mass fraction] 5.2 % 3.8-5.6 [facility] Comment on above: Normal < 5.7 % Predi abetic 5.7 - 6.4 % Diabetic >or= 6.5 % Please note range changes. Basophil percentageOrdered B y: Navneet Anderson on 02-17-2023 Bilirubin [Mass/Vol] 0.70 mg/dL 0.20-1.00 [facility] Comment on above: For patients on eltr ombopag therapy, use of Dimension Brooks TBIL is not recommended. Chloride [Moles/Vol] 108 mmol/L 98-107 [facility] Cholesterol [Mass/Vol] 116 mg/dL <200 [facility] Comment on above: <200 mg/dL Desirable 200-240 mg/dL Borderline >240 mg/dL High Risk Glucose [Mass/Vol] 108 mg/dL 74-106 [facility] Comment on above: Fasting Glucose resu lt from 100 to 125 mg/dL suggests IMPAIRED HOMEOSTASIS per A.D.A. criteria. Potassium [Moles/Vol] 4.2 mmol/L 3.5-5.1 [facility] Protein [Mass/Vol] 7.2 g/dL 6.4-8.2 [facility] Sodium [Moles/Vol] 141 mmol/L 136-145 [facility] Triglyceride [Mass/Vol] 182 mg/dL <199 [facility] Comment on above: The drugs N-Acetylcy steine and Metamizole may falsely depress this assay.Serum Triglycerides Reference Interval Normal <150 mg/dL Borderline high 150 - 199 mg/dL High 200 - 499 mg/dL Very High > or = 500 mg/dL Laboratory - Chemistry and C hemistry - challengeOrdered By: Navneet Anderson on 02-17-2023 ALP [Catalytic activity/Vol] 92 U/L 45-117 [facility] ALT [Catalytic activity/Vol] 32 U/L 16-61 [facility] CO2 [Moles/Vol] 27.0 mmol/L 21.0-32.0 [facility] Globulin (S) [Mass/Vol] 3.3 g/dL 2.2-4.2 [facility] Urea nitrogen/Creatinine [Mass ratio] 11.7 mg/mg 10-20 [facility] No Panel InformationOrdered By: Navneet Anderson on 02-17-2023 Estimated GFR (MDRD) Amer 95 mL/min >60 [facility] Comment on above: GFR Calc Estimated GFR (MDRD) Non-Af Amer 78 mL/min >60 [facility] Comment on above: Non- GFR Calc Serum or plasma albumin zahida urement (mass/volume)Ordered By: Navneet Anderson on 02-17-2023 Albumin [Mass/Vol] 3.9 g/dL 3.2-5.0 [facility] Serum or plasma albumin/glob ulin mass ratioOrdered By: Navneet Anderson on 02-17-2023 Albumin/Globulin [Mass ratio] 1.2 {ratio} 0.9-2.4 [facility] Serum or plasma calcium zahida urement (mass/volume)Ordered By: Navneet Anderson on 02-17-2023 Calcium [Mass/Vol] 9.2 mg/dL 8.5-10.1 [facility] Serum or plasma cholesterol in HDL measurement (mass/volume)Ordered By: Navneet Anderson on 02-17-2023 Cholesterol in HDL [Mass/Vol] 47 mg/dL >40 [facility] Comment on above: The drugs N-Acetylcy steine and Metamizole may falsely depress this assay. Reference Range HDL <40 mg/dL Low HDL Cholesterol HDL >or= 60 mg/dL High HDL Cholesterol Serum or plasma cholesterol in VLDL measurement (mass/volume)Ordered By: Navneet Anderson on 02-17-2023 Cholesterol in VLDL [Mass/Vol] 36 mg/dL 5-40 [facility] Serum or plasma creatinine m easurement (mass/volume)Ordered By: Navneet Anderson on 02-17-2023 Creatinine [Mass/Vol] 1.03 mg/dL 0.70-1.30 [facility] Comment on above: The validity of the calculated GFR & GFRAA in patients over 70 years has not been determined. Clinical correlation is essential. Serum or plasma low density lipoprotein (LDL) cholesterol measurement (mass/volume)Ordered By: Navneet Anderson on 02-17-2023 Cholesterol in LDL [Mass/Vol] 33 mg/dL 0-130 [facility] Serum or plasma urea nitroge n measurement (mass/volume)Ordered By: Navneet Anderson on 02-17-2023 Urea nitrogen [Mass/Vol] 12 mg/dL 7-18 [facility] Thin prep Papanicolaou smear with manual screeningOrdered By: Navneet Anderson on 02-17-2023 Thin prep Papanicolaou smear with manual screening 14 U/L 15-37 [facility] Thin prep Papanicolaou smear with manual screening 6 5-15 [facility] Thin prep Papanicolaou smear with manual screening 37.9 mg/L NO RANGE EST. [facility] Basophil percentageOrdered B y: Dr. Anderson on 09-17-2022 Chloride [Moles/Vol] 106 mmol/L 98-107 [facility] Glucose [Mass/Vol] 122 mg/dL 74-106 [facility] Comment on above: Fasting Glucose resu lt from 100 to 125 mg/dL suggests IMPAIRED HOMEOSTASIS per A.D.A. criteria. Potassium [Moles/Vol] 3.8 mmol/L 3.5-5.1 [facility] Comment on above: Slight Hemolysis, Re sult may be falsely increased. Sodium [Moles/Vol] 138 mmol/L 136-145 [facility] - Chemistry and C hemistry - challengeOrdered By: Dr. Anderson on 09-17-2022 CO2 [Moles/Vol] 21.0 mmol/L 21.0-32.0 [facility] Urea nitrogen/Creatinine [Mass ratio] 11.1 mg/mg 10-20 [facility] No Panel InformationOrdered By: Dr. Anderson on 09-17-2022 Estimated GFR (MDRD) Amer 99 mL/min >60 [facility] Comment on above: GFR Calc Estimated GFR (MDRD) Non-Af Amer 82 mL/min >60 [facility] Comment on above: Non- GFR Calc Serum or plasma calcium zahida urement (mass/volume)Ordered By: Dr. Anderson on 09-17-2022 Calcium [Mass/Vol] 9.3 mg/dL 8.5-10.1 [facility] Serum or plasma creatinine m easurement (mass/volume)Ordered By: Dr. Anderson on 09-17-2022 Creatinine [Mass/Vol] 0.99 mg/dL 0.70-1.30 [facility] Comment on above: The validity of the calculated GFR & GFRAA in patients over 70 years has not been determined. Clinical correlation is essential. Serum or plasma urea nitroge n measurement (mass/volume)Ordered By: Dr. Anderson on 09-17-2022 Urea nitrogen [Mass/Vol] 11 mg/dL 7-18 [facility] Thin prep Papanicolaou smear with manual screeningOrdered By: Dr. Anderson on 09-17-2022 Thin prep Papanicolaou smear with manual screening 11 5-15 [facility] Basophil percentageon 2021 Bilirubin [Mass/Vol] 0.80 mg/dL 0.20-1.00 [facility] Work Phone: Comment on above: For patients on eltr ombopag therapy, use of Dimension Brooks TBIL is not recommended. Chloride [Moles/Vol] 107 mmol/L 98-107 [facility] Work Phone: Cholesterol [Mass/Vol] 128 mg/dL <200 [facility] Work Phone: Comment on above: <200 mg/dL Desirable 200-240 mg/dL Borderline >240 mg/dL High Risk Glucose [Mass/Vol] 105 mg/dL 74-106 [facility] Work Phone: Comment on above: Fasting Glucose resu lt from 100 to 125 mg/dL suggests IMPAIRED HOMEOSTASIS per A.D.A. criteria. Potassium [Moles/Vol] 3.8 mmol/L 3.5-5.1 [facility] Work Phone: Protein [Mass/Vol] 7.4 g/dL 6.4-8.2 [facility] Work Phone: Sodium [Moles/Vol] 140 mmol/L 136-145 [facility] Work Phone: Triglyceride [Mass/Vol] 173 mg/dL <199 [facility] Work Phone: Comment on above: The drugs N-Acetylcy steine and Metamizole may falsely depress this assay.Serum Triglycerides Reference Interval Normal <150 mg/dL Borderline high 150 - 199 mg/dL High 200 - 499 mg/dL Very High > or = 500 mg/dL Laboratory - Chemistry and C hemistry - challengeon 02-16-2022 ALP [Catalytic activity/Vol] 74 U/L 45-117 [facility] Work Phone: ALT [Catalytic activity/Vol] 33 U/L 16-61 [facility] Work Phone: CO2 [Moles/Vol] 25.0 mmol/L 21.0-32.0 [facility] Work Phone: Globulin (S) [Mass/Vol] 3.5 g/dL 2.2-4.2 [facility] Work Phone: Urea nitrogen/Creatinine [Mass ratio] 12.9 mg/mg 10-20 [facility] Work Phone: No Panel Informationon 02-16 Estimated GFR (MDRD) Amer 97 mL/min >60 [facility] Work Phone: Comment on above: GFR Calc Estimated GFR (MDRD) Non-Af Amer 80 mL/min >60 [facility] Work Phone: Comment on above: Non- GFR Calc Prostate Specific Antigen Screen 3.26 ng/mL 0.00-4.00 [facility] Work Phone: Comment on above: This test was perfor med using the TPSA assay method [facility]. Values obtained with differentassay methods cannot be used interchangably.When changing PSA assays in the course of monitoring apatient, additional sequential testing should be carriedout to confirm baseline values. Urine Microalbumin/Creatini ne Ratio 22.1 mg/g CRE <30 [facility] Work Phone: Serum or plasma albumin zahida urement (mass/volume)on 02-16-2022 Albumin [Mass/Vol] 3.9 g/dL 3.2-5.0 [facility] Work Phone: Serum or plasma albumin/glob ulin mass ratioon 02-16-2022 Albumin/Globulin [Mass ratio] 1.1 {ratio} 0.9-2.4 [facility] Work Phone: Serum or plasma calcium zahida urement (mass/volume)on 02-16-2022 Calcium [Mass/Vol] 9.5 mg/dL 8.5-10.1 [facility] Work Phone: Serum or plasma cholesterol in HDL measurement (mass/volume)on 02-16-2022 Cholesterol in HDL [Mass/Vol] 47 mg/dL >40 [facility] Work Phone: Comment on above: The drugs N-Acetylcy steine and Metamizole may falsely depress this assay. Reference Range HDL <40 mg/dL Low HDL Cholesterol HDL >or= 60 mg/dL High HDL Cholesterol Serum or plasma cholesterol in VLDL measurement (mass/volume)on 02-16-2022 Cholesterol in VLDL [Mass/Vol] 35 mg/dL 5-40 [facility] Work Phone: Serum or plasma creatinine m easurement (mass/volume)on 02-16-2022 Creatinine [Mass/Vol] 1.01 mg/dL 0.70-1.30 [facility] Work Phone: Comment on above: The validity of the calculated GFR & GFRAA in patients over 70 years has not been determined. Clinical correlation is essential. Serum or plasma low density lipoprotein (LDL) cholesterol measurement (mass/volume)on 02-16-2022 Cholesterol in LDL [Mass/Vol] 46 mg/dL 0-130 [facility] Work Phone: Serum or plasma urea nitroge n measurement (mass/volume)on 02-16-2022 Urea nitrogen [Mass/Vol] 13 mg/dL 7-18 [facility] Work Phone: Thin prep Papanicolaou smear with manual screeningon 02-16-2022 Thin prep Papanicolaou smear with manual screening 19 U/L 15-37 [facility] Work Phone: Thin prep Papanicolaou smear with manual screening 8 5-15 [facility] Work Phone: Thin prep Papanicolaou smear with manual screening 16.9 mg/L NO RANGE EST. [facility] Work Phone: Urine creatinine measurement (mass/volume)on 02-16-2022 Creatinine (U) [Mass/Vol] 76.30 mg/dL NO RANGE EST. [facility] Work Phone: CNPNon 04-08-2021 CNPN Telephone (FAMPWS) GABRIELA SHEIKH ([id number]) 1960 M NFR Date Time Provider Department 04/08/21 TERRY ELIZABETH During your visit today, we recorded the following information about you: Terry Elizabeth MD 04/08/2021 8:29 PM Signed Let patient know repeat PSA was normal. Eloise Kate Ma 04/08/2021 8:31 PM Signed Patient notified through [facility] Eloise Kate Ma Allergies As of Date: 04/08/2021 Noted Allergy Reaction NIASPAN (NIACIN (ANTIHYPERLIPIDEM* 5 4 - Hives Comments: red all over Date Reviewed: 04/07/2021 Reviewed by: Terry Elizabeth MD - Fully Assessed Reason for Visit: Results [95] Prescriptions as of 04/08/2021 - hydroCHLOROthiazide 12.5 mg capsule Take 1 capsule by mouth once daily. - atorvastatin (LIPITOR) 40 mg tablet Take 1 tablet by mouth once daily. - amLODIPine (NORVASC) 10 mg tablet Take 1 tablet by mouth once daily. - lisinopril (ZESTRIL, PRINIVIL) 5 mg tablet Take 1 tablet by mouth once daily. - omeprazole (PRILOSEC) 20 mg capsule Take 1 capsule by mouth daily before breakfast. 1/2 hr before meal. - cetirizine (ZYRTEC) 10 mg tablet Take 1 tablet by mouth once daily. - Lactobac no.41/Bifidobact no.7 (PROBIOTIC-10 ORAL) Take by mouth. - ASPIRIN 81 MG TAB Take one(1) tablet daily. - DAILY MULTIVITAMIN TAB Take one(1) tablet daily. Meds Comments as of 05/28/2013: ASA held per MD Problem List As Of Date 04/08/2021 Noted Resolved Essential hypertension, benign [I10] Low back pain [M54.50] 06/20/2009 12/13/2014 Hemorrhoids [K64.9] 04/15/2010 12/30/2015 Shoulder joint pain [M25.519] 08/24/2011 12/30/2015 Arthritis of both knees [M17.0] 10/25/2013 GERD without esophagitis [K21.9] 12/13/2014 12/30/2015 Hyperlipidemia, mixed [E78.2] 12/30/2015 Obesity, Class II, BMI 35-39.9 [E66.9] 06/18/2019 Lumbar radiculopathy [M54.16] 02/22/2020 DDD (degenerative disc disease), lumbar [M51.36]02/22/2020 Seasonal allergies [J30.2] 04/07/2021 Elevated PSA [R97.20] 04/07/2021 Encounter Status:Closed by ELOISE KATE MA on 04/08/21 [facility] Gwendolyn 04-07-2021 CNOV Office Visit (FAMPWS ) GABRIELA SHEIKH ([id number]) 1960 M NFR Date Time Provider Department 04/07/21 9:20 AM TERRY ELIZABETH During your visit today, we recorded the following information about you: Pulse Respiration Blood pressure Weight 76/minute 14/minute 136/84 116.1 kg Terry Elizabeth MD 04/07/2021 10:22 AM Signed Chief Complaint Patient presents with: Recheck: routine HPI Gabriela Sheikh is a 60 year old male who presents here today for Above Complaints. and Chronic Medical Conditions.. Patient with Hx of HTN, Hyperlipidemia, Obesity, OA, seasonal allergies as well as those reviewed and addressed below and in ROS. Patient has been doing well. Past medical history, appointments, medications, allergies reviewed. Previous Medical History PAST MEDICAL HISTORY Diagnosis Date - Arthritis of both knees 10/25/2013 - DDD (degenerative disc disease), lumbar 02/22/2020 - Essential hypertension, benign - Hemorrhoids 04/15/2010 - Hyperlipidemia, mixed 12/30/2015 - Lumbar radiculopathy 02/22/2020 - Obesity, Class II, BMI 35-39.9 06/18/2019 - Other and unspecified hyperlipidemia - Shoulder joint pain 08/24/2011 - Snoring Previous Surgical History PAST SURGICAL HISTORY Procedure Laterality Date - COLONOSCOP W/ OR W/O BRSH SPEC 06/01/2013 Colonoscopy - COLONOSCOPY 2018 - EGD W/O OR W/BRUSH/WASH 07/11/2019 EGD - OTHER SURGICAL HISTORY (PLEASE SPECIFY) HX right retina detachment repair - VASECTOMY Family History FAMILY HISTORY Problem Relation Age of Onset - Lipids Mother - Lipids Father hypertriglyceridemia - Stroke Father pig valve replacement - Allergies Father - Cancer Father lyphoma - COPD Father - Allergies Brother - Hypertension Brother - Stroke Brother - Lipids Brother - Diabetes Paternal Uncle - Allergies Other Patient Allergies ALLERGIES Allergen Reactions - Niaspan [Niacin (An* Hives red all over Current Medications Current Outpatient Medications on File Prior to Visit Medication Sig - hydroCHLOROthiazide 12.5 mg capsule Take 1 capsule by mouth once daily. - atorvastatin (LIPITOR) 40 mg tablet Take 1 tablet by mouth once daily. - amLODIPine (NORVASC) 10 mg tablet Take 1 tablet by mouth once daily. - lisinopril (ZESTRIL, PRINIVIL) 5 mg tablet Take 1 tablet by mouth once daily. - omeprazole (PRILOSEC) 20 mg capsule Take 1 capsule by mouth daily before breakfast. 1/2 hr before meal. - cetirizine (ZYRTEC) 10 mg tablet Take 1 tablet by mouth once daily. - Lactobac no.41/Bifidobact no.7 (PROBIOTIC-10 ORAL) Take by mouth. - ASPIRIN 81 MG TAB Take one(1) tablet daily. - DAILY MULTIVITAMIN TAB Take one(1) tablet daily. No current facility-administered medications on file prior to visit. Social History Social History Tobacco Use - Smoking status: Never Smoker - Smokeless tobacco: Never Used Vaping Use - Vaping Use: Never used Substance Use Topics - Alcohol use: Yes Comment: OCCASIONAL - Drug use: No Review of Symptoms REVIEW OF SYSTEMS GENERAL: No weight loss, malaise or fevers NECK: Negative for lumps, goiter, pain and significant neck swelling RESPIRATORY: Negative for cough, hemoptysis, COPD, dyspnea or shortness of breath. Is getting over a cold and cough is less and not having the wheezing like he was having. Using the albuterol as needed. CARDIOVASCULAR: Negative for chest pain, leg swelling, hypertension, CHF or palpitations NEURO: No history of headaches, syncope, paralysis, seizures or tremors EXAM: BP 136/84 Pulse 76 Resp 14 Wt 116.1 kg (256 lb) BMI 36.65 kg/m? Last 5 Encounter Wt Readings: Date: Wt: 04/07/2021 116.1 kg (256 lb) 03/02/2021 115.2 kg (254 lb) 03/14/2020 114.8 kg (253 lb) 02/07/2020 114.3 kg (252 lb) 06/18/2019 116.6 kg (257 lb) Last 5 Encounter BP Readings: Date: BP: 04/07/2021 136/84 03/02/2021 124/82 03/14/2020 118/86 02/22/2020 134/88 02/07/2020 128/83 General Appearance: Well appearing, alert, in no acute distress, well-hydrated, well nourished. and Obese. Neck: Supple, no adenopathy; thyroid symmetric, normal size, no bruits. Lungs: Lungs clear to auscultation. No wheezing, rhonchi, rales.. Heart: RRR without murmur, gallop, or rubs. No ectopy. Abdomen: Normal abdominal exam, Abdomen soft, non-tender. Bowel sounds normal. No masses, organomegaly. Extremities: No deformities, edema, skin discoloration, Peripheral Pulses: Normal. Musc: Strength intact. Health Maintenance List HEPATITIS C SCREENING Never done HIV SCREENING Never done SHINGRIX VACCINE(1 of 2) Never done BP CONTROLLED (<130/80) due on 01/05/2019 COLORECTAL CANCER SCREENING due on 09/11/2021 ANNUAL PCP TEAM CHRONIC DISEASE VISIT due on 03/02/2022 DEPRESSION SCREENING due on 03/02/2022 DIABETES SCREEN due on 02/25/2024 DTAP,TDAP,TD(3 - Td or Tdap) due on (more content not included)... Normal [facility] PSA, Freeon 04-07-2021 PSA, Diagnostic 2.60 ng/mL High <2.60 [facility] Comment on above: Result Comment: Tota l PSA test methodology used is the electrochemiluminescence immunoassay by [employer]. Total PSA values by differing methodologies cannot be interchanged. For an individual patient, the significance of a PSA level should be interpreted in a broad clinical context, including age, race, family history, digital rectal exam, prostate size, results of prior testing (prostate biopsy, free PSA, PCA3), and use of 5-alpha reductase inhibitors. Considering the high incidence of asymptomatic cancer in the general population that may not pose an ultimate risk to a patient, the decision to recommend urological evaluation or prostate biopsy should be individualized after consideration of all these factors. REFERENCE: Guille Arvizu M.D., M.P.H., Eliceo Rojas M.D., Ph.D., Chris Miranda M.D., Rocio Ambriz, M.P.H., Olga Winn Sc.D. Effect of Verification Bias on Screening for Prostate Cancer by Measurement of Prostatic Specific Antigen. N Engl J Med 2003,349:335-42. Performed By: #### P [facility] ####[place] [phone] PSA, Percent Free DO NOT ORDER FOR SUPERIOR ONLY 13 % Normal [facility] Comment on above: Result Comment: (NOT E) Total and free PSA test methodology used is the electrochemiluminescence immunoassay by [employer]. Total or free PSA values by differing methodologies cannot be interchanged. The below table lists the probability of finding prostate cancer upon needle biopsy, for men 50 years or older and total PSA concentrations from 4.0-10.0 ng/mL. Results should be interpreted within the broader clinical context. Free PSA(%) 50-59 years 60-69 years >69 years <11 49.2% 57.5% 64.5% 11-18 26.9% 33.9% 40.8% 19-25 18.3% 23.9% 29.7% >25 9.1% 12.2% 15.8% Performed By: #### P [facility] ####[facility] [address] [place], [place] [phone] CNOVon 03-02-2021 CNOV Office Visit (LYSSAWS ) KORIGABRIELA ([id number]) 1960 M [facility] Date Time Provider Department 03/02/21 10:40 AM JEANNA ALVARADO During your visit today, we recorded the following information about you: Pulse Respiration Blood pressure Weight 76/minute 18/minute 124/82 115.2 kg Height 1.78 m Jeanna Alvarado APRN.CNP 03/02/2021 7:44 PM Signed This is a 60 year old male who presents today with: Patient presents with: Physical HISTORY OF PRESENT ILLNESS: Gabriela Sheikh is a 60 year old male. Patient presents with: Physical Pt presents for annual exam. No problems/concerns. REVIEW OF SYSTEMS GENERAL: No weight loss, malaise or fevers/chills HEENT: Negative for frequent or significant headaches, No changes in hearing or vision. NECK: Negative for lumps, goiter, pain and significant neck swelling RESPIRATORY: Negative for cough, hemoptysis, wheezing, dyspnea or shortness of breath CARDIOVASCULAR: Negative for chest pain, leg swelling, orthopnea, or palpitations GI: No nausea, vomiting, or diarrhea/constipation. No hematochezia/melena. Heartburn or reflux symptoms - diet Induced sometimes. Last colonoscopy 2018 -- 3 year clearance. : No history of dysuria, frequency or incontinence. Gets up a couple of times overnight - but drinks water in the evenings. MUSCULOSKELETAL: Negative for joint pain or swelling. Back pain and left shoulder (old injury/dislocation). SKIN: Negative for lesions, rash, and itching ENDOCRINE: Negative for cold or heat intolerance, polyuria, polydipsia and goiter NEURO: No history of headaches, syncope, paralysis, seizures or tremors PAST MEDICAL HISTORY: PAST MEDICAL HISTORY Diagnosis Date - Essential hypertension, benign - Hemorrhoids 04/15/2010 - Other and unspecified hyperlipidemia - Shoulder joint pain 08/24/2011 - Snoring PAST SURGICAL HISTORY Procedure Laterality Date - COLONOSCOP W/ OR W/O [facility] SPEC 06/01/2013 Colonoscopy - COLONOSCOPY 2019 - EGD W/O OR W/BRUSH/WASH 07/11/2019 EGD - OTHER SURGICAL HISTORY (PLEASE SPECIFY) HX right retina detachment repair - VASECTOMY ALLERGIES Niaspan [Niacin (Antihyperlipidemic)] MEDICATIONS Current Outpatient Medications Medication Sig - hydroCHLOROthiazide 12.5 mg capsule Take 1 capsule by mouth once daily. - lisinopril (ZESTRIL, PRINIVIL) 5 mg tablet Take 1 tablet by mouth once daily. - amLODIPine (NORVASC) 10 mg tablet Take 1 tablet by mouth once daily. - atorvastatin (LIPITOR) 40 mg tablet Take 1 tablet by mouth once daily. - omeprazole (PRILOSEC) 20 mg capsule Take 1 capsule by mouth daily before breakfast. 1/2 hr before meal. - Lactobac no.41/Bifidobact no.7 (PROBIOTIC-10 ORAL) Take by mouth. - ASPIRIN 81 MG TAB Take one(1) tablet daily. - DAILY MULTIVITAMIN TAB Take one(1) tablet daily. - cetirizine (ZYRTEC) 10 mg tablet Take 1 tablet by mouth once daily. - gabapentin (NEURONTIN) 100 mg capsule Take 1 capsule by mouth three times daily as needed for up to 30 days. No current facility-administered medications for this visit. FAMILY HISTORY Problem Relation Age of Onset - Lipids Mother - Lipids Father hypertriglyceridemia - Stroke Father pig valve replacement - Allergies Father - Cancer Father lyphoma - COPD Father - Allergies Brother - Hypertension Brother - Stroke Brother - Lipids Brother - Diabetes Paternal Uncle - Allergies Other Social History Tobacco Use - Smoking status: Never Smoker - Smokeless tobacco: Never Used Vaping Use - Vaping Use: Never used Substance Use Topics - Alcohol use: Yes Comment: OCCASIONAL - Drug use: No EXAM: BP 124/82 Pulse 76 Resp 18 Ht 178 cm (5' 10.08) Wt 115.2 kg (254 lb) BMI 36.36 kg/m? PHYSICAL EXAM: General Appearance: Well appearing, alert, in no acute distress, well-hydrated, well nourished.. Skin: Skin color, texture, turgor normal, no suspicious rashes or lesions. Head: Normocephalic, no masses, lesions, tenderness or abnormalities. Eyes: Anicteric sclera. Pupils are equally round and reactive to light. Extraocular movements are intact. Ears: External ears normal, canals clear Oropharynx: Lips, mucosa, and tongue normal, teeth and gums normal, oropharynx normal. Neck: Supple, no adenopathy; thyroid symmetric, normal size, no bruits. Lungs: Lungs clear to auscultation. No wheezing, rhonchi, rales.. Heart: RRR without murmur, gallop, or rubs. No ectopy. Abdomen: Abdomen soft, non-tender. Bowel sounds normal. No masses, organomegaly. Extremities: No deformities, edema, skin discoloration, clubbing or cyanosis. Good capillary refill. Neurologic: Gait normal. ASSESSMENT/PLAN: 1. Wellness examination - ICD9: V70.0, ICD10: Z00.00 (primary diagnosis) - Recommended regular aerobic exercise. - Follow up for annual exam in one year. - HYDROCHLOROTHIAZIDE 12.5 MG CAP (more content not included)... Normal [facility] CBC and Differentialon 02-24 Abs Baso 0.03 k/uL Normal <0.11 [facility] Comment on above: Performed By: #### P SAS1, CBCDIF, CMP, LIPB ####[place] [address] [address] [place] [phone] Abs [place] 0.48 k/uL Normal <0.87 [facility] Comment on above: Performed By: #### P SAS1, CBCDIF, CMP, LIPB ####[address]enn[address] [phone] Abs Neut 3.35 k/uL Normal 1.45-7.50 [facility] Comment on above: Performed By: #### P SAS1, CBCDIF, CMP, LIPB ####[address] AvSteven [place] [phone] Absolute nRBC <0.01 Normal <0.01 [facility] Comment on above: Performed By: #### P SAS1, CBCDIF, CMP, LIPB ####[phone] Basophils/100 WBC (Bld) 0.5 % Normal [facility] Comment on above: Performed By: #### P SAS1, CBCDIF, CMP, LIPB ####[place] [phone] DTYPE Auto Diff Normal [facility] Comment on above: Performed By: #### P SAS1, CBCDIF, CMP, LIPB ####[address] [place] [phone] Eosinophils (Bld) [#/Vol] 0.09 10*3/uL Normal <0.46 [facility] Comment on above: Performed By: #### P SAS1, CBCDIF, CMP, LIPB ####[address] [phone] Eosinophils/100 WBC (Bld) 1.5 % Normal [facility] Comment on above: Performed By: #### P SAS1, CBCDIF, CMP, LIPB ####[facility] [place], [place] [phone] Erythrocyte distribution width (RBC) [Ratio] 12.7 % Normal 11.5-15.0 [facility] Comment on above: Performed By: #### P SAS1, CBCDIF, CMP, LIPB ####[place] [address] [place], [place] [phone] Hematocrit (Bld) [Volume fraction] 48.4 % Normal 39.0-51.0 [facility] Comment on above: Performed By: #### P SAS1, CBCDIF, CMP, LIPB ####[place] [address] [address], [place] [phone] Hemoglobin (Bld) [Mass/Vol] 16.2 g/dL Normal 13.0-17.0 [facility] Comment on above: Performed By: #### P SAS1, CBCDIF, CMP, LIPB ####[place] [address] [address] [place] [phone] Lymphocytes (Bld) [#/Vol] 1.90 10*3/uL Normal 1.00-4.00 [facility] Comment on above: Performed By: #### P SAS1, CBCDIF, CMP, LIPB ####[place] [address], [place] [phone] Lymphocytes/100 WBC (Bld) 32.4 % Normal [facility] Comment on above: Performed By: #### P SAS1, CBCDIF, CMP, LIPB ####[place] [address] [place], [place] [phone] MCH 29.9 pG Normal 26.0-34.0 [facility] Comment on above: Performed By: #### P SAS1, CBCDIF, CMP, LIPB ####[place] [address] [place] [phone] MCHC (RBC) [Mass/Vol] 33.5 g/dL Normal 30.5-36.0 [facility] Comment on above: Performed By: #### P SAS1, CBCDIF, CMP, LIPB ####[place] [address] [place] [phone] MCV (RBC) [Entitic vol] 89.5 fL Normal 80.0-100.0 [facility] Comment on above: Performed By: #### P SAS1, CBCDIF, CMP, LIPB ####[place] [address] [place] [phone] Monocytes/100 WBC (Bld) 8.2 % Normal [facility] Comment on above: Performed By: #### P SAS1, CBCDIF, CMP, LIPB ####[place] [address] [place] [phone] Neutrophils/100 WBC (Bld) 57.4 % Normal [facility] Comment on above: Performed By: #### P SAS1, CBCDIF, CMP, LIPB ####[place] [address] [place] [phone] NRBCs 0.0 /100 WBC Normal 0 [facility] Comment on above: Performed By: #### P SAS1, CBCDIF, CMP, LIPB ####[place] [address] [place] [phone] Platelet mean volume (Bld) [Entitic vol] 9.4 fL Normal 9.0-12.7 [facility] Comment on above: Performed By: #### P SAS1, CBCDIF, CMP, LIPB ####[place] [address] [address] [place] [phone] Platelets (Bld) [#/Vol] 230 10*3/uL Normal 150-400 [facility] Comment on above: Performed By: #### P SAS1, CBCDIF, CMP, LIPB ####[address] [phone] RBC (Bld) [#/Vol] 5.41 10*6/uL Normal 4.20-6.00 [facility] Comment on above: Performed By: #### P SAS1, CBCDIF, CMP, LIPB ####[address] [phone] WBC (Bld) [#/Vol] 5.86 10*3/uL Normal 3.70-11.00 [facility] Comment on above: Performed By: #### P SAS1, CBCDIF, CMP, LIPB ####[address] [phone] Comp Metabolic Panelon 02-24 Albumin [Mass/Vol] 4.6 g/dL Normal 3.9-4.9 [facility] Comment on above: Performed By: #### P SAS1, CBCDIF, CMP, LIPB ####[address] [phone] ALP [Catalytic activity/Vol] 86 U/L Normal 38-113 [facility] Comment on above: Performed By: #### P SAS1, CBCDIF, CMP, LIPB ####[address] [phone] ALT [Catalytic activity/Vol] 17 U/L Normal 10-54 [facility] Comment on above: Performed By: #### P SAS1, CBCDIF, CMP, LIPB ####[address] [phone] Anion gap [Moles/Vol] 16 mmol/L Normal 9-18 [facility] Comment on above: Performed By: #### P SAS1, CBCDIF, CMP, LIPB ####[address] [phone] AST [Catalytic activity/Vol] 18 U/L Normal 14-40 [facility] Comment on above: Performed By: #### P SAS1, CBCDIF, CMP, LIPB ####[place] [phone] Bilirubin [Mass/Vol] 0.5 mg/dL Normal 0.2-1.3 [facility] Comment on above: Performed By: #### P SAS1, CBCDIF, CMP, LIPB ####[place] [phone] Calcium [Mass/Vol] 9.7 mg/dL Normal 8.5-10.2 [facility] Comment on above: Performed By: #### P SAS1, CBCDIF, CMP, LIPB ####[place] [phone] Chloride [Moles/Vol] 104 mmol/L Normal 97-105 [facility] Comment on above: Performed By: #### P SAS1, CBCDIF, CMP, LIPB ####[place] [phone] CO2 [Moles/Vol] 23 mmol/L Normal 22-30 [facility] Comment on above: Performed By: #### P SAS1, CBCDIF, CMP, LIPB ####[place] [phone] Creatinine [Mass/Vol] 1.01 mg/dL Normal 0.73-1.22 [facility] Comment on above: Performed By: #### P SAS1, CBCDIF, CMP, LIPB ####[place] [phone] eGFR- Amer. >60 Normal [facility] Comment on above: Performed By: #### P SAS1, CBCDIF, CMP, LIPB ####[place] [phone] eGFR-All Other Races >60 Normal [facility] Comment on above: Result Comment: eGFR (Estimated GFR) Units of measure: mL/min/1.73 meters squared eGFR is derived from the reexpressed MDRD Study equation using the following parameters: serum creatinine, age, gender and race. The creatinine assay has been calibrated to be traceable to IDMS. An eGFR <60 mL/min/1.73m2 for >3 months is consistent with chronic kidney disease. Refer to KDOQI guidelines for clinical interpretation. In patients with unstable renal function, e.g. those with acute kidney injury, the eGFR may not accurately reflect actual GFR. Performed By: #### P SAS1, CBCDIF, CMP, LIPB ####[facility] [place], [place] [phone] Glucose [Mass/Vol] 96 mg/dL Normal 74-99 [facility] Comment on above: Result Comment: The [place] Diabetes Association (ADA) provides guidance for cutoff values for fasting glucose and random glucose. The ADA defines fasting as no caloric intake for at least 8 hours. Fasting plasma glucose results between 100 to 125 mg/dL indicate increased risk for diabetes (prediabetes). Fasting plasma glucose results greater than or equal to 126 mg/dL meet the criteria for diagnosis of diabetes. In the absence of unequivocal hyperglycemia, results should be confirmed by repeat testing. In a patient with classic symptoms of hyperglycemia or hyperglycemic crisis, random plasma glucose results greater than or equal to 200 mg/dL meet the criteria for diagnosis of diabetes. Reference: Standards of Medical Care in Diabetes 2016, [place] [employer]. Diabetes Care. 2016.39(Suppl 1). Performed By: #### P SAS1, CBCDIF, CMP, LIPB ####[facility] [place], [place] [phone] Potassium [Moles/Vol] 3.9 mmol/L Normal 3.7-5.1 [facility] Comment on above: Performed By: #### P SAS1, CBCDIF, CMP, LIPB ####[facility] [place], [place] [phone] Protein [Mass/Vol] 7.3 g/dL Normal 6.3-8.0 [facility] Comment on above: Performed By: #### P SAS1, CBCDIF, CMP, LIPB ####[place] [address], [place] [phone] Sodium [Moles/Vol] 143 mmol/L Normal 136-144 [facility] Comment on above: Performed By: #### P SAS1, CBCDIF, CMP, LIPB ####[place] [address] [place], [place] [phone] Urea nitrogen [Mass/Vol] 16 mg/dL Normal 9-24 [facility] Comment on above: Performed By: #### P SAS1, CBCDIF, CMP, LIPB ####[address] [phone] Lipid Panel, [facility] 021 Cholesterol [Mass/Vol] 118 mg/dL Normal <200 [facility] Comment on above: Result Comment: <200 mg/dL, Desirable 200-239 mg/dL, Borderline high >239 mg/dL, High Performed By: #### P SAS1, CBCDIF, CMP, LIPB ####[address] [phone] Cholesterol in HDL [Mass/Vol] 37 mg/dL Low >39 [facility] Comment on above: Result Comment: 40-5 9 mg/dL, Acceptable >59 mg/dL, High: Negative risk factor for coronary heart disease <40 mg/dL, Low: Positive risk factor for coronary heart disease Performed By: #### P SAS1, CBCDIF, CMP, LIPB ####[address] [place], [place] [phone] Cholesterol in LDL [Mass/Vol] 49 mg/dL Normal <100 [facility] Comment on above: Result Comment: <100 mg/dL, Optimal 100-129 mg/dL, Near optimal/above optimal 130-159 mg/dL, Borderline high 160-189 mg/dL, High >189 mg/dL, Very high Secondary prevention optimal LDL Cholesterol levels are recommended to be < 70 mg/dL Performed By: #### P SAS1, CBCDIF, CMP, LIPB ####[address] [phone] Fasting Time 12 hrs Normal [facility] Comment on above: Performed By: #### P SAS1, CBCDIF, CMP, LIPB ####[place] [phone] LDL:HDL Ratio 1.32 Normal <2.54 [facility] Comment on above: Result Comment: Refe rence: 1. National Cholesterol Education Program ATP III Guideline At-A-Glance Quick Desk Reference: National Heart, Lung, and Blood Marshall. National Institutes of Health. 2001: NIH Publication No. 01-3305. 2. An International Atherosclerosis Society position paper: global recommendations for the management of dyslipidemia: executive summary, Atherosclerosis. 2014: 232(2):410-413. Performed By: #### P SAS1, CBCDIF, CMP, LIPB ####[place] [phone] Non HDL Cholesterol 81 mg/dL Normal <130 [facility] Comment on above: Result Comment: <130 mg/dL, Optimal 130-159 mg/dL, Near optimal/above optimal 160-189 mg/dL, Borderline high 190-219 mg/dL, High >219 mg/dL, Very high Secondary prevention optimal non HDL Cholesterol levels are recommended to be < 100 mg/dL Performed By: #### P SAS1, CBCDIF, CMP, LIPB ####[place] [phone] TC:HDL Ratio 3.19 Normal <5.10 [facility] Comment on above: Performed By: #### P SAS1, CBCDIF, CMP, LIPB ####[place] [phone] Triglyceride [Mass/Vol] 160 mg/dL High <150 [facility] Comment on above: Result Comment: <150 mg/dL, Normal 150-199 mg/dL, Borderline high 200-499 mg/dL, High >499 mg/dL, Very high Performed By: #### P SAS1, CBCDIF, CMP, LIPB ####[facility] [address] [place], [place] [phone] VLDL Cholesterol 32 mg/dL High <30 [facility] Comment on above: Performed By: #### P SAS1, CBCDIF, CMP, LIPB ####[facility] [id number] [place], [place] [id number] Keagan 02-16-2021 PEBBLES Telephone (MECHELLE) GABRIELA SHEIKH ([id number]) 1960 M R Date Time Provider Department 02/16/21 JEANNA ALVARADO During your visit today, we recorded the following information about you: Fely Desai 02/16/2021 3:39 PM Signed Patient has a physical scheduled with Jeanna Alvarado on 03/02.He was a patient of .He would like lab orders placed before his physical.He also needs prescriptions refilled for hydrochlorothiazide 12.5 mg capsule and lisinopril 5 mg and would like it sent to [facility] in [place]. Fely Alvarado APRN.CNP 02/17/2021 5:20 PM Signed Scripts sent and orders for fasting labs placed. Can please let patient know. MICH Waldrop LPN 02/18/2021 8:54 AM Signed Pt notified. Angel Saxena LPN Allergies As of Date: 02/16/2021 Noted Allergy Reaction NIASPAN (NIACIN (ANTIHYPERLIPIDEM* 5 4 - Hives Comments: red all over Date Reviewed: 03/14/2020 Reviewed by: Rhonda Palomares Ma - Fully Assessed Reason for Visit: Orders [681] Primary Visit Diagnosis:Wellness examination [Z00.00] Other Visit Diagnoses:Hyperlipidemia LDL goal <100 [E78.5] Essential hypertension, benign [I10] Screening for prostate cancer [Z12.5] Order(s):hydroCHLOROthiazid e 12.5 mg capsuleTake 1 capsule by mouth once daily.Disp: 90 capsuleRfl: 0 lisinopril (ZESTRIL, PRINIVIL) 5 mg tabletTake 1 tablet by mouth once daily.Disp: 90 tabletRfl: 0 amLODIPine (NORVASC) 10 mg tabletTake 1 tablet by mouth once daily.Disp: 90 tabletRfl: 0 atorvastatin (LIPITOR) 40 mg tabletTake 1 tablet by mouth once daily.Disp: 90 tabletRfl: 0 CBC + DIFF [SQCBCDIF] Order #: [id number] FUTURE COMP METABOLIC PANEL [SQCMP] Order #: [id number] FUTURE LIPID PANEL BASIC [SQLIPB] Order #: [id number] FUTURE PSA/PROSTSPECAG SCRN [SQPSAS1] Order #: [id number] FUTURE Prescriptions as of 02/18/2021 - hydroCHLOROthiazide 12.5 mg capsule Take 1 capsule by mouth once daily. - lisinopril (ZESTRIL, PRINIVIL) 5 mg tablet Take 1 tablet by mouth once daily. - amLODIPine (NORVASC) 10 mg tablet Take 1 tablet by mouth once daily. - atorvastatin (LIPITOR) 40 mg tablet Take 1 tablet by mouth once daily. - omeprazole (PRILOSEC) 20 mg capsule Take 1 capsule by mouth daily before breakfast. 1/2 hr before meal. - gabapentin (NEURONTIN) 100 mg capsule Take 1 capsule by mouth three times daily as needed for up to 30 days. - Lactobac no.41/Bifidobact no.7 (PROBIOTIC-10 ORAL) Take by mouth. - ASPIRIN 81 MG TAB Take one(1) tablet daily. - DAILY MULTIVITAMIN TAB Take one(1) tablet daily. Meds Comments as of 05/28/2013: ASA held per MD Problem List As Of Date 02/16/2021 Noted Resolved BENIGN HYPERTENSION [I10] Low back pain [M54.50] 06/20/2009 12/13/2014 Hemorrhoids [K64.9] 04/15/2010 12/30/2015 Shoulder joint pain [M25.519] 08/24/2011 12/30/2015 Arthritis of both knees [M17.0] 10/25/2013 GERD without esophagitis [K21.9] 12/13/2014 12/30/2015 Obesity [E66.9] 12/13/2014 Hyperlipidemia LDL goal <100 [E78.5] 12/30/2015 Obesity, Class II, BMI 35-39.9 [E66.9] 06/18/2019 Lumbar radiculopathy [M54.16] 02/22/2020 DDD (degenerative disc disease), lumbar [M51.36]02/22/2020 Prescriptions ordered this encounter Disp Refills Start End HYDROCHLOROTHIAZIDE 12.5 MG CAPSULE 90 c* 0 02/17/2021 Route: ORAL Sig: Take 1 capsule by mouth once daily. LISINOPRIL 5 MG TABLET 90 t* 0 02/17/2021 Route: ORAL Sig: Take 1 tablet by mouth once daily. AMLODIPINE 10 MG TABLET 90 t* 0 02/17/2021 Route: ORAL Sig: Take 1 tablet by mouth once daily. ATORVASTATIN 40 MG TABLET 90 t* 0 02/17/2021 Route: ORAL Sig: Take 1 tablet by mouth once daily. Medications Discontinued During This Encounter Prescriptions - hydroCHLOROthiazide 12.5 mg capsule (Discontinued) Take 1 capsule by mouth once daily. - amLODIPine (NORVASC) 10 mg tablet (Discontinued) Take 1 tablet by mouth once daily. - atorvastatin (LIPITOR) 40 mg tablet (Discontinued) Take 1 tablet by mouth once daily. - lisinopril (ZESTRIL, PRINIVIL) 5 mg tablet (Discontinued) Take 1 tablet by mouth once daily. Encounter Status:Closed by ANGEL SAXENA LPN on 02/18/21 [facility] OBSOLETEon 02-16-2021 OBSOLETE Refill (FAMPWS) GABRIELA SHEIKH ([id number]) 1960 M NFR Date Time Provider Department 02/16/21 JEANNA ALVARADO During your visit today, we recorded the following information about you: Fely Lloyd 02/16/2021 3:46 PM Signed Patient has been identified by name and date of : Yes Last office visit in this department: 03/14/2020 RX INSTRUCTIONS: Patient aware RX will be sent to pharmacy. No need to notify patient. Patient phones requesting refills as follows: Pending Prescriptions Disp Refills LISINOPRIL 5 MG TABLET 90 tablet 0 Sig: Take 1 tablet by mouth once daily. FABIEN: No HYDROCHLOROTHIAZIDE 12.5 MG CAPSULE 90 capsule 0 Sig: Take 1 capsule by mouth once daily. FABIEN: No Please review and advise. Fely Desai Allergies As of Date: 02/16/2021 Noted Allergy Reaction NIASPAN (NIACIN (ANTIHYPERLIPIDEM* 5 4 - Hives Comments: red all over Date Reviewed: 03/14/2020 Reviewed by: Rhonda Palomares Ma - Fully Assessed Reason for Visit: Refill Request [94] Prescriptions as of 02/16/2021 - hydroCHLOROthiazide 12.5 mg capsule Take 1 capsule by mouth once daily. - lisinopril (ZESTRIL, PRINIVIL) 5 mg tablet Take 1 tablet by mouth once daily. - amLODIPine (NORVASC) 10 mg tablet Take 1 tablet by mouth once daily. - atorvastatin (LIPITOR) 40 mg tablet Take 1 tablet by mouth once daily. - omeprazole (PRILOSEC) 20 mg capsule Take 1 capsule by mouth daily before breakfast. 1/2 hr before meal. - gabapentin (NEURONTIN) 100 mg capsule Take 1 capsule by mouth three times daily as needed for up to 30 days. - Lactobac no.41/Bifidobact no.7 (PROBIOTIC-10 ORAL) Take by mouth. - ASPIRIN 81 MG TAB Take one(1) tablet daily. - DAILY MULTIVITAMIN TAB Take one(1) tablet daily. Meds Comments as of 05/28/2013: ASA held per MD Problem List As Of Date 02/16/2021 Noted Resolved BENIGN HYPERTENSION [I10] Low back pain [M54.50] 06/20/2009 12/13/2014 Hemorrhoids [K64.9] 04/15/2010 12/30/2015 Shoulder joint pain [M25.519] 08/24/2011 12/30/2015 Arthritis of both knees [M17.0] 10/25/2013 GERD without esophagitis [K21.9] 12/13/2014 12/30/2015 Obesity [E66.9] 12/13/2014 Hyperlipidemia LDL goal <100 [E78.5] 12/30/2015 Obesity, Class II, BMI 35-39.9 [E66.9] 06/18/2019 Lumbar radiculopathy [M54.16] 02/22/2020 DDD (degenerative disc disease), lumbar [M51.36]02/22/2020 Encounter Status:Closed by ANGEL SAXENA LPN on 02/16/21 [facility] OBSOLETEon 11-18-2020 OBSOLETE Refill (FAMPWS) GABRIELA SHEIKH ([id number]) 1960 M NFR Date Time Provider Department 11/18/20 FELICITA ANDERSON FAMPWS During your visit today, we recorded the following information about you: Eloise Kate Ma 11/18/2020 2:10 PM Signed Patient last visit with PCP 03/14/20 Follow up appointment scheduled patient sent message needing to call to [facility] care Eloise Meraz, HOBBING MACHINE OPERATOR.PRAVEEN 11/18/2020 2:43 PM Signed Patient needs to establish care with new PCP, please assist in scheduling. Thanks, Syl Meraz, HOBBING MACHINE OPERATOR.PRAVEEN Hauser 11/21/2020 8:33 AM Signed Patient is up for insurance renewal with his company in November and just waiting to make sure they stay with in [facility] network and then he will set up appointment to est new provider. Allergies As of Date: 11/18/2020 Noted Allergy Reaction NIASPAN (NIACIN (ANTIHYPERLIPIDEM* 5 4 - Hives Comments: red all over Date Reviewed: 03/14/2020 Reviewed by: Rhonda Palomares Ma - Fully Assessed Reason for Visit: Refill Request [94] Order(s):hydroCHLOROthiazid e 12.5 mg capsuleTake 1 capsule by mouth once daily.Disp: 90 capsuleRfl: 0 lisinopril (ZESTRIL, PRINIVIL) 5 mg tabletTake 1 tablet by mouth once daily.Disp: 90 tabletRfl: 0 amLODIPine (NORVASC) 10 mg tabletTake 1 tablet by mouth once daily.Disp: 90 tabletRfl: 0 atorvastatin (LIPITOR) 40 mg tabletTake 1 tablet by mouth once daily.Disp: 90 tabletRfl: 0 Prescriptions as of 11/21/2020 - hydroCHLOROthiazide 12.5 mg capsule Take 1 capsule by mouth once daily. - lisinopril (ZESTRIL, PRINIVIL) 5 mg tablet Take 1 tablet by mouth once daily. - amLODIPine (NORVASC) 10 mg tablet Take 1 tablet by mouth once daily. - atorvastatin (LIPITOR) 40 mg tablet Take 1 tablet by mouth once daily. - omeprazole (PRILOSEC) 20 mg capsule Take 1 capsule by mouth daily before breakfast. 1/2 hr before meal. - gabapentin (NEURONTIN) 100 mg capsule Take 1 capsule by mouth three times daily as needed for up to 30 days. - Lactobac no.41/Bifidobact no.7 (PROBIOTIC-10 ORAL) Take by mouth. - ASPIRIN 81 MG TAB Take one(1) tablet daily. - DAILY MULTIVITAMIN TAB Take one(1) tablet daily. Meds Comments as of 05/28/2013: ASA held per MD Problem List As Of Date 11/18/2020 Noted Resolved BENIGN HYPERTENSION [I10] Low back pain [M54.5] 06/20/2009 12/13/2014 Hemorrhoids [K64.9] 04/15/2010 12/30/2015 Shoulder joint pain [M25.519] 08/24/2011 12/30/2015 Arthritis of both knees [M17.0] 10/25/2013 GERD without esophagitis [K21.9] 12/13/2014 12/30/2015 Obesity [E66.9] 12/13/2014 Hyperlipidemia LDL goal <100 [E78.5] 12/30/2015 Obesity, Class II, BMI 35-39.9 [E66.9] 06/18/2019 Lumbar radiculopathy [M54.16] 02/22/2020 DDD (degenerative disc disease), lumbar [M51.36]02/22/2020 Prescriptions ordered this encounter Disp Refills Start End HYDROCHLOROTHIAZIDE 12.5 MG CAPSULE 90 c* 0 11/18/2020 Route: ORAL Sig: Take 1 capsule by mouth once daily. LISINOPRIL 5 MG TABLET 90 t* 0 11/18/2020 Route: ORAL Sig: Take 1 tablet by mouth once daily. AMLODIPINE 10 MG TABLET 90 t* 0 11/18/2020 Route: ORAL Sig: Take 1 tablet by mouth once daily. ATORVASTATIN 40 MG TABLET 90 t* 0 11/18/2020 Route: ORAL Sig: Take 1 tablet by mouth once daily. Medications Discontinued During This Encounter Prescriptions - Hydrochlorothiazide 12.5 mg capsule (Discontinued) Take 1 capsule by mouth once daily. - lisinopril (ZESTRIL, PRINIVIL) 5 mg tablet (Discontinued) Take 1 tablet by mouth once daily. - amLODIPine (NORVASC) 10 mg tablet (Discontinued) Take 1 tablet by mouth once daily. - atorvastatin (LIPITOR) 40 mg tablet (Discontinued) Take 1 tablet by mouth once daily. Encounter Status:Closed by PODLOGSYL ALTAMIRANO on 11/18/20 [facility] OBSOLETEon 10-07-2020 OBSOLETE Refill (FAMPWS) GABRIELA SHEIKH ([id number]) 1960 M NFR Date Time Provider Department 10/07/20 FELICITA ANDERSON FAMPWS During your visit today, we recorded the following information about you: Josey Erazo Ma 10/07/2020 8:06 AM Signed Pending Prescriptions Disp Refills OMEPRAZOLE 20 MG CAPSULE,DELAYED RELEASE 90 capsule 3 Sig: Take 1 capsule by mouth daily before breakfast. 1/2 hr before meal. FABIEN: No RACQUEL 03/14/2020 NOV not scheduled at this time Last refilled 10/11/2019 #90 3 refills Josey Oh APRN.CNP 10/07/2020 8:11 AM Signed The following approved medication requests have been transmitted electronically. Pending Prescriptions Disp Refills OMEPRAZOLE 20 MG CAPSULE,DELAYED RELEASE 90 capsule 3 Sig: Take 1 capsule by mouth daily before breakfast. 1/2 hr before meal. FABIEN: No James Oh APRN.CNP Allergies As of Date: 10/07/2020 Noted Allergy Reaction NIASPAN (NIACIN (ANTIHYPERLIPIDEM* 5 4 - Hives Comments: red all over Date Reviewed: 03/14/2020 Reviewed by: Rhonda Palomares Ma - Fully Assessed Reason for Visit: Refill Request [94] Visit Diagnosis:Dysphagia, unspecified type [R13.10] Order(s):omeprazole (PRILOSEC) 20 mg capsuleTake 1 capsule by mouth daily before breakfast. 1/2 hr before meal.Disp: 90 capsuleRfl: 3 Prescriptions as of 10/07/2020 Sig: OMEPRAZOLE 20 MG CAPSULE,KAYLIE* Take 1 capsule by mouth daily* GABAPENTIN 100 MG CAPSULE Take 1 capsule by mouth three* AMLODIPINE 10 MG TABLET Take 1 tablet by mouth once d* ATORVASTATIN 40 MG TABLET Take 1 tablet by mouth once d* LISINOPRIL 5 MG TABLET Take 1 tablet by mouth once d* HYDROCHLOROTHIAZIDE 12.5 MG C* Take 1 capsule by mouth once * PROBIOTIC-10 ORAL Take by mouth. ASPIRIN 81 MG TABLET Take one(1) tablet daily. DAILY MULTIVITAMIN TABLET Take one(1) tablet daily. Problem List As Of Date 10/07/2020 Noted Resolved BENIGN HYPERTENSION [I10] Low back pain [M54.5] 06/20/2009 12/13/2014 Hemorrhoids [K64.9] 04/15/2010 12/30/2015 Shoulder joint pain [M25.519] 08/24/2011 12/30/2015 Arthritis of both knees [M17.0] 10/25/2013 GERD without esophagitis [K21.9] 12/13/2014 12/30/2015 Obesity [E66.9] 12/13/2014 Hyperlipidemia LDL goal <100 [E78.5] 12/30/2015 Obesity, Class II, BMI 35-39.9 [E66.9] 06/18/2019 Lumbar radiculopathy [M54.16] 02/22/2020 DDD (degenerative disc disease), lumbar [M51.36]02/22/2020 Prescriptions ordered this encounter Disp Refills Start End OMEPRAZOLE 20 MG CAPSULE,DELAYED REL* 90 c* 3 10/07/2020 Route: ORAL Sig: Take 1 capsule by mouth daily before breakfast. 1/2 hr before meal. Medications Discontinued During This Encounter Prescriptions - omeprazole (PRILOSEC) 20 mg capsule (Discontinued) Take 1 capsule by mouth daily before breakfast. 1/2 hr before meal. Encounter Status:Closed by JAMES OH on 10/07/20 [facility] GAB[facility] ([id number]) 1960 [place] R Date Time Provider Department 07/09/20 RICKY LOVELL III FAMPWS During your visit today, we recorded the following information about you: Juan Woods LPN 07/09/2020 3:08 PM Signed Pt is filling out insurance form AND it is asking the dates he was diagnosed or began taking medication for hypertension AND hyperlipidemia. Reviewed pt's chart AND told him it only went back as far as 08/14/02 because the clinic used paper charts before that. Hypertension AND hyperlipidemia AND meds were both noted in the visit on 08/14/02. Juan Woods LPN Allergies As of Date: 07/09/2020 Noted Allergy Reaction NIASPAN (NIACIN (ANTIHYPERLIPIDEM* 5 4 - Hives Comments: red all over Date Reviewed: 03/14/2020 Reviewed by: Rhonda Palomares Ma - Fully Assessed Reason for Visit: Medication Question [1478] Prescriptions as of 07/09/2020 Sig: GABAPENTIN 100 MG CAPSULE Take 1 capsule by mouth three* AMLODIPINE 10 MG TABLET Take 1 tablet by mouth once d* ATORVASTATIN 40 MG TABLET Take 1 tablet by mouth once d* LISINOPRIL 5 MG TABLET Take 1 tablet by mouth once d* HYDROCHLOROTHIAZIDE 12.5 MG C* Take 1 capsule by mouth once * OMEPRAZOLE 20 MG CAPSULE,KAYLIE* Take 1 capsule by mouth daily* PROBIOTIC-10 ORAL Take by mouth. ASPIRIN 81 MG TABLET Take one(1) tablet daily. DAILY MULTIVITAMIN TABLET Take one(1) tablet daily. Problem List As Of Date 07/09/2020 Noted Resolved BENIGN HYPERTENSION [I10] Low back pain [M54.5] 06/20/2009 12/13/2014 Hemorrhoids [K64.9] 04/15/2010 12/30/2015 Shoulder joint pain [M25.519] 08/24/2011 12/30/2015 Arthritis of both knees [M17.0] 10/25/2013 GERD without esophagitis [K21.9] 12/13/2014 12/30/2015 Obesity [E66.9] 12/13/2014 Hyperlipidemia LDL goal <100 [E78.5] 12/30/2015 Obesity, Class II, BMI 35-39.9 [E66.9] 06/18/2019 Lumbar radiculopathy [M54.16] 02/22/2020 DDD (degenerative disc disease), lumbar [M51.36]02/22/2020 Encounter Status:Closed by JUAN WOODS LPN on 07/09/20 [facility] Vital Signs Date Time Vital Sign Value Performing Clinician Kwabena dunham 10-02-2021 08:50-0400 Diastolic blood pressure 73 mm[Hg] [facility] Work Phone: 10-02-2021 08:50-0400 Systolic blood pressure 112 mm[Hg] [facility] Work Phone: 10-02-2021 08:13-0400 Heart rate 68 /min [facility] Work Phone: 10-02-2021 08:13-0400 Respiratory rate 16 /min [facility] Work Phone: 10-02-2021 08:13-0400 SaO2% (BldA) [Mass fraction] 97 % [facility] Work Phone: 10-02-2021 07:56-0400 Body temperature 99 [degF] [facility] Work Phone: 10-02-2021 06:58-0400 Body height 177.8 cm [facility] Work Phone: 10-02-2021 06:58-0400 Body mass index (BMI) [Ratio] 34.5 kg/m2 [facility] Work Phone: 10-02-2021 06:58-0400 Body weight 109.2 kg [facility] Work Phone: 09-01-2021 09:58-0400 Body mass index (BMI) [Ratio] 35.7 kg/m2 [facility] Work Phone: 09-01-2021 09:58-0400 Body weight 112.94 kg [facility] Work Phone: Encounters Encounter Date Encounter Type Care Provider Facility Start: 03-06-2024 End: 03-06-2024 ambulatory Navneet Anderson Facility:[facility] Start: 08-29-2023 End: 08-29-2023 [facility] Work Phone: Start: 08-29-2023 End: 08-29-2023 Patient encounter procedure [facility] Start: 08-29-2023 End: 08-29-2023 ambulatory Navneet Anderson Facility:[facility] Start: 02-17-2023 End: 02-17-2023 [facility] Work Phone: Start: 02-17-2023 End: 02-17-2023 Patient encounter procedure [facility] Start: 09-17-2022 End: 09-17-2022 ambulatory [facility] Work Phone: Start: 09-17-2022 End: 09-17-[address] [facility] Start: 02-16-2022 End: 02-16-2022 ambulatory [facility] Work Phone: Start: 02-16-2022 End: 02-16-2022 Patient encounter procedure [facility] Start: 10-02-2021 Non-patient / Non-visit [facility] Start: 10-02-2021 End: 10-02-2021 Admission to same day surgery center [facility] Start: 09-01-2021 Non-patient / Non-visit [facility] Procedures Date Procedure Procedure Detail Performing Clinician Start: 09-17-2022 Radiography of nasal sinuses Start: 10-02-2021 Colonoscopy [facility] Start: 02-24-2021 PSA screening Comment on above: Result Comment: Total PSA test methodolo gy used is the Electrochemiluminescence Immunoassay. The presence of an abnormal result flag in this range (2.6 to 4.0 ng/mL) should not necessarily be an automatic indicator for prostate biopsy. For an individual patient, the significance of a PSA level should be interpreted in a broad clinical context, including age, race, family history, digital rectal exam, prostate size, results of prior testing (prostate biopsy, free PSA, PCA3), and use of 5-alpha reductase inhibitors. Considering the high incidence of asymptomatic cancer in the general population that may not pose an ultimate risk to a patient, the decision to recommend urological evaluation or prostate biopsy should be individualized after consideration of all these factors. REFERENCE: Guille Arvizu M.D., M.P.H., Eliceo Rojas M.D., Ph.D., Chris Miranda M.D., Rocio Ambriz M.P.H., Olga Winn Sc.D. Effect of Verification Bias on Screening for Prostate Cancer by Measurement of Prostatic Specific Antigen. N Engl J Med 2003,349:335-42. Performed By: #### P SAS1, CBCDIF, CMP, LIPB ####[facility] [id number] [place], [place] [phone] Plan of Treatment Date Care Activity Detail Author Patient referral [facility] Work Phone: Immunizations Immunization Date Immunization Notes Care Provider Fa cility 07-29-2020 Covid (Pfizer) [facility] 07-08-2020 Covid (Pfizer) [facility] Payers Date Payer Category Payer Private Health Insurance [id number] 2023 Self-pay [id number] Private Health Insurance [id number] Unknown [id number] Unknown [id number] Social History Date Type Detail Facility [facility]: [facility] Start: 09-11-2018 Non-smoker [facility] Start: 1960 Sex Assigned At Male W [facility] Medical Equipment Procedure Code Equipment Code Equipment Origin al Text Equipment Identifier Dates Colonoscopy RESOLUTION 360 C LIP 235 CM FDA Start: 10-02-2021 Colonoscopy RESOLUTION 360 C LIP 235 CM FDA Start: 10-02-2021 Colonoscopy RESOLUTION 360 C LIP 235 CM FDA Start: 10-02-2021 Colonoscopy RESOLUTION 360 C LIP 235 CM FDA Start: 10-02-2021 Mental Status Date Assessment Result Facility 10-02-2021 Cognitive function Voice/Name [facility] Work Phone: Progress note 04-07-2021 Note Date & Type Note Facility 04-07-2021 Note HNO ID: [id number] Author: Terry Elizabeth MD Service: ? Author Type: Physician Type: Progress Notes Filed: 04/07/2021 10:22 AM Note Text: Chief Complaint Patient presents with: Recheck: routine HPI Gabriela Sheikh is a 60 year old male who presents here today for Above Complaints. and Chronic Medical Conditions.. Patient with Hx of HTN, Hyperlipidemia, Obesity, OA, seasonal allergies as well as those reviewed and addressed below and in ROS. Patient has been doing well. Past medical history, appointments, medications, allergies reviewed. Previous Medical History PAST MEDICAL HISTORY Diagnosis Date - Arthritis of both knees 10/25/2013 - DDD (degenerative disc disease), lumbar 02/22/2020 - Essential hypertension, benign - Hemorrhoids 04/15/2010 - Hyperlipidemia, mixed 12/30/2015 - Lumbar radiculopathy 02/22/2020 - Obesity, Class II, BMI 35-39.9 06/18/2019 - Other and unspecified hyperlipidemia - Shoulder joint pain 08/24/2011 - Snoring Previous Surgical History PAST SURGICAL HISTORY Procedure Laterality Date - COLONOSCOP W/ OR W/O BRSH SPEC 06/01/2013 Colonoscopy - COLONOSCOPY 2019 - EGD W/O OR W/BRUSH/WASH 07/11/2019 EGD - OTHER SURGICAL HISTORY (PLEASE SPECIFY) HX right retina detachment repair - VASECTOMY Family History FAMILY HISTORY Problem Relation Age of Onset - Lipids Mother - Lipids Father hypertriglyceridemia - Stroke Father pig valve replacement - Allergies Father - Cancer Father lyphoma - COPD Father - Allergies Brother - Hypertension Brother - Stroke Brother - Lipids Brother - Diabetes Paternal Uncle - Allergies Other Patient Allergies ALLERGIES Allergen Reactions - Niaspan [Niacin (An* Hives red all over Current Medications Current Outpatient Medications on File Prior to Visit Medication Sig - hydroCHLOROthiazide 12.5 mg capsule Take 1 capsule by mouth once daily. - atorvastatin (LIPITOR) 40 mg tablet Take 1 tablet by mouth once daily. - amLODIPine (NORVASC) 10 mg tablet Take 1 tablet by mouth once daily. - lisinopril (ZESTRIL, PRINIVIL) 5 mg tablet Take 1 tablet by mouth once daily. - omeprazole (PRILOSEC) 20 mg capsule Take 1 capsule by mouth daily before breakfast. 1/2 hr before meal. - cetirizine (ZYRTEC) 10 mg tablet Take 1 tablet by mouth once daily. - Lactobac no.41/Bifidobact no.7 (PROBIOTIC-10 ORAL) Take by mouth. - ASPIRIN 81 MG TAB Take one(1) tablet daily. - DAILY MULTIVITAMIN TAB Take one(1) tablet daily. No current facility-administered medications on file prior to visit. Social History Social History Tobacco Use - Smoking status: Never Smoker - Smokeless tobacco: Never Used Vaping Use - Vaping Use: Never used Substance Use Topics - Alcohol use: Yes Comment: OCCASIONAL - Drug use: No Review of Symptoms REVIEW OF SYSTEMS GENERAL: No weight loss, malaise or fevers NECK: Negative for lumps, goiter, pain and significant neck swelling RESPIRATORY: Negative for cough, hemoptysis, COPD, dyspnea or shortness of breath. Is getting over a cold and cough is less and not having the wheezing like he was having. Using the albuterol as needed. CARDIOVASCULAR: Negative for chest pain, leg swelling, hypertension, CHF or palpitations NEURO: No history of headaches, syncope, paralysis, seizures or tremors EXAM: BP 136/84 Pulse 76 Resp 14 Wt 116.1 kg (256 lb) BMI 36.65 kg/m? Last 5 Encounter Wt Readings: Date: Wt: 04/07/2021 116.1 kg (256 lb) 03/02/2021 115.2 kg (254 lb) 03/14/2020 114.8 kg (253 lb) 02/07/2020 114.3 kg (252 lb) 06/18/2019 116.6 kg (257 lb) Last 5 Encounter BP Readings: Date: BP: 04/07/2021 136/84 03/02/2021 124/82 03/14/2020 118/86 02/22/2020 134/88 02/07/2020 128/83 General Appearance: Well appearing, alert, in no acute distress, well-hydrated, well nourished. and Obese. Neck: Supple, no adenopathy; thyroid symmetric, normal size, no bruits. Lungs: Lungs clear to auscultation. No wheezing, rhonchi, rales.. Heart: RRR without murmur, gallop, or rubs. No ectopy. Abdomen: Normal abdominal exam, Abdomen soft, non-tender. Bowel sounds normal. No masses, organomegaly. Extremities: No deformities, edema, skin discoloration, Peripheral Pulses: Normal. Musc: Strength intact. Health Maintenance List HEPATITIS C SCREENING Never done HIV SCREENING Never done SHINGRIX VACCINE(1 of 2) Never done BP CONTROLLED (<130/80) due on 01/05/2019 COLORECTAL CANCER SCREENING due on 09/11/2021 ANNUAL PCP TEAM CHRONIC DISEASE VISIT due on 03/02/2022 DEPRESSION SCREENING due on 03/02/2022 DIABETES SCREEN due on 02/25/2024 DTAP,TDAP,TD(3 - Td or Tdap) due on 12/13/2024 LIPID SCREEN due on 02/24/2026 PROSTATE CANCER SCREENING DISCUSSION due on 02/24/2026 INFLUENZA Completed COVID-19 VACCINE Completed MENINGOCOCCAL CONJUGATE Aged Out Data reviewed Component Latest Ref Rng AND Units 02/01/2020 02/24/2021 WBC 3.70 - 11.00 k/uL 5 (more content not included)... [facility] Progress note 03-03-2021 Note Date & Type Note Facility 03-03-2021 Note HNO ID: [id number] Author: Nico Anna Population Health Navigator Service: ? Author Type: ? Type: Progress Notes Filed: 03/03/2021 1:50 PM Note Text: POPULATION HEALTH NAVIGATION OUTREACH Action/FYI Updated pcp No care everywhere Contact made with patient or family member? NO Pt identified by name and : NO Outreach Outcome/Action PCP field updated Reason for Outreach Attribution: Provider Off-boarding Payer: Payor: [employer] / Plan: [facility] / Product Type: POS / Care Gap Reviewed:: Reminder: Reminder note to check Health Maintenance for items below Health Maintenance items due: HEPATITIS C SCREENING Never done HIV SCREENING Never done SHINGRIX VACCINE(1 of 2) Never done BP CONTROLLED (<130/80) due on 01/05/2019 COVID-19 VACCINE(3 - Booster for Pfizer series) due on 01/28/2021 Advanced Directives Completed: Have you ever planned for future healthcare decisions with a power of regulatory attorney, living will, or advance directives? No. Please bring a copy to your next appointment or email to [email or web address] Referrals: N/A Message Sent to Practice: NO Navigation Signature: Nico Anna Population Health Navigator March 03, 2021 1:50 PM [facility] Clinical Note 03-03-2021 Note Date & Type Note Facility 03-03-2021 Note Patient Outreach (NE TNAV) GABRIELA SHEIKH ([id number]) 1960 M NFR Date Time Provider Department 03/03/21 NICO ANNAV During your visit today, we recorded the following information about you: Nico Anna Population Health Navigator 03/03/2021 1:50 PM Signed POPULATION HEALTH NAVIGATION OUTREACH Action/FYI Updated pcp No care everywhere Contact made with patient or family member? NO Pt identified by name and : NO Outreach Outcome/Action PCP field updated Reason for Outreach Attribution: Provider Off-boarding Payer: Payor: [employer] / Plan: [facility] / Product Type: POS / Care Gap Reviewed:: Reminder: Reminder note to check Health Maintenance for items below Health Maintenance items due: HEPATITIS C SCREENING Never done HIV SCREENING Never done SHINGRIX VACCINE(1 of 2) Never done BP CONTROLLED (<130/80) due on 01/05/2019 COVID-19 VACCINE(3 - Booster for Pfizer series) due on 01/28/2021 Advanced Directives Completed: Have you ever planned for future healthcare decisions with a power of regulatory attorney, living will, or advance directives? No. Please bring a copy to your next appointment or email to Referrals: N/A Message Sent to Practice: NO Navigation Signature: Nico Hardin Lennox Population Health Navigator March 03, 2021 1:50 PM Allergies As of Date: 03/03/2021 Noted Allergy Reaction NIASPAN (NIACIN (ANTIHYPERLIPIDEM*03/01/2005 4 - Hives Comments: red all over Date Reviewed: 03/02/2021 Reviewed by: Angel Saxena LPN - Fully Assessed Reason for Visit: Population Health Navigation Outreach [3910] Cmt: Offboarding Prescriptions as of 03/03/2021 - cetirizine (ZYRTEC) 10 mg tablet Take 1 tablet by mouth once daily. - hydroCHLOROthiazide 12.5 mg capsule Take 1 capsule by mouth once daily. - atorvastatin (LIPITOR) 40 mg tablet Take 1 tablet by mouth once daily. - amLODIPine (NORVASC) 10 mg tablet Take 1 tablet by mouth once daily. - lisinopril (ZESTRIL, PRINIVIL) 5 mg tablet Take 1 tablet by mouth once daily. - omeprazole (PRILOSEC) 20 mg capsule Take 1 capsule by mouth daily before breakfast. 1/2 hr before meal. - Lactobac no.41/Bifidobact no.7 (PROBIOTIC-10 ORAL) Take by mouth. - ASPIRIN 81 MG TAB Take one(1) tablet daily. - DAILY MULTIVITAMIN TAB Take one(1) tablet daily. Meds Comments as of 05/28/2013: ASA held per MD Problem List As Of Date 03/03/2021 Noted Resolved BENIGN HYPERTENSION [I10] Low back pain [M54.50] 06/20/2009 12/13/2014 Hemorrhoids [K64.9] 04/15/2010 12/30/2015 Shoulder joint pain [M25.519] 08/24/2011 12/30/2015 Arthritis of both knees [M17.0] 10/25/2013 GERD without esophagitis [K21.9] 12/13/2014 12/30/2015 Obesity [E66.9] 12/13/2014 Hyperlipidemia LDL goal <100 [E78.5] 12/30/2015 Obesity, Class II, BMI 35-39.9 [E66.9] 06/18/2019 Lumbar radiculopathy [M54.16] 02/22/2020 DDD (degenerative disc disease), lumbar [M51.36]02/22/2020 Encounter Status:Closed by [facility] HEALTH NAVIGATOR, NICO Hradin on 03/03/21 [facility] Progress note 03-02-2021 Note Date & Type Note Facility 03-02-2021 Note HNO ID: [id number] Author: Jeanna Alvarado APRN.[employer] Service: ? Author Type: Nurse Practitioner Type: Progress Notes Filed: 03/02/2021 7:44 PM Note Text: This is a 60 year old male who presents today with: Patient presents with: Physical HISTORY OF PRESENT ILLNESS: Gabriela Sheikh is a 60 year old male. Patient presents with: Physical Pt presents for annual exam. No problems/concerns. REVIEW OF SYSTEMS GENERAL: No weight loss, malaise or fevers/chills HEENT: Negative for frequent or significant headaches, No changes in hearing or vision. NECK: Negative for lumps, goiter, pain and significant neck swelling RESPIRATORY: Negative for cough, hemoptysis, wheezing, dyspnea or shortness of breath CARDIOVASCULAR: Negative for chest pain, leg swelling, orthopnea, or palpitations GI: No nausea, vomiting, or diarrhea/constipation. No hematochezia/melena. Heartburn or reflux symptoms - diet Induced sometimes. Last colonoscopy 2018 -- 3 year clearance. : No history of dysuria, frequency or incontinence. Gets up a couple of times overnight - but drinks water in the evenings. MUSCULOSKELETAL: Negative for joint pain or swelling. Back pain and left shoulder (old injury/dislocation). SKIN: Negative for lesions, rash, and itching ENDOCRINE: Negative for cold or heat intolerance, polyuria, polydipsia and goiter NEURO: No history of headaches, syncope, paralysis, seizures or tremors PAST MEDICAL HISTORY: PAST MEDICAL HISTORY Diagnosis Date - Essential hypertension, benign - Hemorrhoids 04/15/2010 - Other and unspecified hyperlipidemia - Shoulder joint pain 08/24/2011 - Snoring PAST SURGICAL HISTORY Procedure Laterality Date - COLONOSCOP W/ OR W/O BRSH SPEC 06/01/2013 Colonoscopy - COLONOSCOPY 2019 - EGD W/O OR W/BRUSH/WASH 07/11/2019 EGD - OTHER SURGICAL HISTORY (PLEASE SPECIFY) HX right retina detachment repair - VASECTOMY ALLERGIES Niaspan [Niacin (Antihyperlipidemic)] MEDICATIONS Current Outpatient Medications Medication Sig - hydroCHLOROthiazide 12.5 mg capsule Take 1 capsule by mouth once daily. - lisinopril (ZESTRIL, PRINIVIL) 5 mg tablet Take 1 tablet by mouth once daily. - amLODIPine (NORVASC) 10 mg tablet Take 1 tablet by mouth once daily. - atorvastatin (LIPITOR) 40 mg tablet Take 1 tablet by mouth once daily. - omeprazole (PRILOSEC) 20 mg capsule Take 1 capsule by mouth daily before breakfast. 1/2 hr before meal. - Lactobac no.41/Bifidobact no.7 (PROBIOTIC-10 ORAL) Take by mouth. - ASPIRIN 81 MG TAB Take one(1) tablet daily. - DAILY MULTIVITAMIN TAB Take one(1) tablet daily. - cetirizine (ZYRTEC) 10 mg tablet Take 1 tablet by mouth once daily. - gabapentin (NEURONTIN) 100 mg capsule Take 1 capsule by mouth three times daily as needed for up to 30 days. No current facility-administered medications for this visit. FAMILY HISTORY Problem Relation Age of Onset - Lipids Mother - Lipids Father hypertriglyceridemia - Stroke Father pig valve replacement - Allergies Father - Cancer Father lyphoma - COPD Father - Allergies Brother - Hypertension Brother - Stroke Brother - Lipids Brother - Diabetes Paternal Uncle - Allergies Other Social History Tobacco Use - Smoking status: Never Smoker - Smokeless tobacco: Never Used Vaping Use - Vaping Use: Never used Substance Use Topics - Alcohol use: Yes Comment: OCCASIONAL - Drug use: No EXAM: BP 124/82 Pulse 76 Resp 18 Ht 178 cm (5' 10.08) Wt 115.2 kg (254 lb) BMI 36.36 kg/m? PHYSICAL EXAM: General Appearance: Well appearing, alert, in no acute distress, well-hydrated, well nourished.. Skin: Skin color, texture, turgor normal, no suspicious rashes or lesions. Head: Normocephalic, no masses, lesions, tenderness or abnormalities. Eyes: Anicteric sclera. Pupils are equally round and reactive to light. Extraocular movements are intact. Ears: External ears normal, canals clear Oropharynx: Lips, mucosa, and tongue normal, teeth and gums normal, oropharynx normal. Neck: Supple, no adenopathy; thyroid symmetric, normal size, no bruits. Lungs: Lungs clear to auscultation. No wheezing, rhonchi, rales.. Heart: RRR without murmur, gallop, or rubs. No ectopy. Abdomen: Abdomen soft, non-tender. Bowel sounds normal. No masses, organomegaly. Extremities: No deformities, edema, skin discoloration, clubbing or cyanosis. Good capillary refill. Neurologic: Gait normal. ASSESSMENT/PLAN: 1. Wellness examination - ICD9: V70.0, ICD10: Z00.00 (primary diagnosis) - Recommended regular aerobic exercise. - Follow up for annual exam in one year. - HYDROCHLOROTHIAZIDE 12.5 MG CAPSULE - AMLODIPINE 10 MG TABLET - LISINOPRIL 5 MG TABLET He will check with insurance re:shingrix. Health Promotion: - Eat healthy ? go to [employer] to get started - Have a yearly physical - Get at least 30 minutes of physical activity daily - Get at least 7 to 8 (more content not included)... [facility] Evaluation note Note Date & Type Note Facility Evaluation note Diagnosis Onset Date Personal history of colonic polyps acute [facility] Work Phone: Evaluation note Note Date & Type Note Facility Evaluation note No assessment information availa ble [facility] Work Phone: Summary Purpose Family History No Family History Records Found Relationship Condition Age at Onset Recorded Date/T armand Unknown Family History?No pertinent history Unkno wn September 11, 2018 7:16am Family History?No pertinent history Unkno wn September 11, 2018 7:16am Advance Directives No Advanced Directives Records Found Advance Directive Response Recorded Date/ Time Living Will No September 29, 2021 1 0:39am Power of Circular Clerk No September 29, 2021 10:39am Chief Complaint and Reason for Visit Chief Complaint Amb Documentation COLONOSCOPY COLONOSCOPY Reason for Visit Personal history of colonic polyps Chief Complaint LABS AND XRAY- recur rent sinusitis Additional Source Comments (unrecognized sect ion and content) No Status Records FoundNo Status Records Found INFORMATION SOURCE (unrecogn ized section and content) DATE CREATED AUTHOR 06/14/2021 [facility] DATE CREATED AUTHOR 'S REINALDO QUINTANA 04/05/2024 [facility] Goals (unrecognized section and content) Goals may be documented in a n alternate sectionGoals may be documented in an alternate sectionGoals may be documented in an alternate sectionGoals may be documented in an alternate sectionGoals may be documented in an alternate section Care Teams (unrecognized sec tion and content) Team Status: Active Member Role Status Dates Dr. Ricky Lovell III, MD Family Provider Active Dr. Navneet Anderson MD Primary Care Provider Active Team Status: Inactive Member Role Status Dates Dr. Navneet Anderson MD Primary Care Provide r, Attending Provider, Referring Provider Active Team Status: Inactive Member Role Status Dates Dr. Navneet Anderson MD Primary Care Provider, Attending P carroll Active FOR RECORDS PERTAINING TO PATIENTS WHO ARE OR HAVE BEEN ENROLLED IN A CHEMICAL DEPENDENCY/SUBSTANCEABUSE PROGRAM, SOME INFORMATION MAY BE OMITTED. This clinical summary was aggregated from multiple sources. Caution should be exercised in using it in the provision of clinical care. This summary normalizes information from multiple sources, and as a consequence, information in this document may materially change the coding, format and clinical context of patient data. In addition, data may be omitted in some cases. CLINICAL DECISIONS SHOULD BE BASED ON THE PRIMARY CLINICAL RECORDS. [employer] provides no warranty or guarantee of the accuracy or completeness of information in this document.
[2024-10-09 11:04] LABS: Microalbumin,Random Urine 33.6 mg/L (NO RANGE EST.); Microalbumin:Creatinine Ratio 18.6 mg/g CRE
[2024-10-09 14:48] LABS: ALB/GLOB Ratio 1.5 RATIO (0.9-2.4); AST(SGOT) 16 U/L (<=37); Alanine Aminotransfer ALT/SGPT 21 U/L (<=46); Albumin, Serum 4.3 g/dL (3.4-4.8); Alkaline Phosphatase 81 U/L (40-129); Anion Gap 13 (5-15); BUN 19 mg/dL (4-19); BUN/Creat Ratio 20.3 RATIO (10-20); Calcium,Total 9.3 mg/dL (7.6-11.0); Carbon Dioxide 21.9 mmol/L (21.0-32.0); Chloride 106 mmol/L (98-108); Cholesterol 137 mg/dL (<=200); Creatinine, Serum 0.92 mg/dL (0.70-1.20); EST Glomerular Filtration Rate 94 (>60); Globulin 2.8 g/dL (2.2-4.2); Glucose 107 mg/dL (70-99); High Density Lipoprotein 40 mg/dL; Low Density Lipoprotein Calc. 49 mg/dL; PSA,Total - Annual Screen 2.57 ng/mL (0.02-4.00); Potassium 3.8 mmol/L (3.3-5.1); Sodium Level 141 mmol/L (133-145); Total Bilirubin 0.39 mg/dL (0.00-1.30); Triglycerides 241 mg/dL; Very Low Density Lipoprotein 48 mg/dL (5-40); cholesterol:hdl ratio screen 3.45
== END | disposition home or self-care (01) ==
LOC: MFPLAB 08:05
PROVIDERS: PCP Family Medicine; Referring Provider Family Medicine; Visit Provider Family Medicine
DX: I10 Essential (primary) hypertension (principal); M24.812 Other specific joint derangements of left shoulder, not elsewhere classified
CPT/HCPCS: 36415; 80053; 80061; 82043; 82570; 84153; G0103

== ENCOUNTER → 2024-12-31 | Outpatient (CLI) | payer OTHER, SELFPAY ==
[2024-12-31 10:22] LABS: Hematocrit 47.5 % (40-54); Hemoglobin 16.9 g/dL (13.0-16.5); Immature Granulocytes Count 0.030 X10^3/uL (0.0-0.0); Mean Corp Hgb Conc 35.6 g/dL (32-36); Mean Corpuscular Volume 86.5 fL (80-94); Mean Platelet Vol. 9.3 fl (6.2-12.0); NRBC Flagged by Analyzer 0 % (0-5); Platelet Count 224 K/mm3 (150-450); RBC Distribution Width CV 12.8 % (11.6-14.6); RBC Distribution Width SD 39.8 fl (35.1-43.9); Red Blood Count 5.49 M/mm3 (4.6-6.2); White Blood Count 6.8 K/mm3 (4.4-11.0)
[2024-12-31 10:59] LABS: CRP < 3.00 mg/L (0.0-3.0)
[2025-01-01 15:08] LABS: Cytoplasmic Ab (C-ANCA) <1:20 titer (Neg:<1:20); Perinuclear Ab (P-ANCA) <1:20 titer (Neg:<1:20)
== END | disposition home or self-care (01) ==
LOC: MTLAB 07:56
PROVIDERS: PCP Family Medicine; Referring Provider Family Medicine; Visit Provider Family Medicine
DX: R51.9 Headache, unspecified (principal)
CPT/HCPCS: 36415; 85025; 85652; 86037; 86140

== ENCOUNTER → 2025-03-20 | Outpatient (CLI) | payer OTHER, SELFPAY ==
[2025-03-20 10:43] LABS: AST(SGOT) 23 U/L (<=37); Alanine Aminotransfer ALT/SGPT 27 U/L (<=46); Albumin, Serum 4.4 g/dL (3.4-4.8); Alkaline Phosphatase 77 U/L (40-129); Anion Gap 12 (5-15); BUN 17 mg/dL (4-19); BUN/Creat Ratio 16.7 RATIO (10-20); Calcium,Total 9.1 mg/dL (7.6-11.0); Carbon Dioxide 22.6 mmol/L (21.0-32.0); Chloride 104 mmol/L (98-108); Globulin 3.0 g/dL (2.2-4.2); Glucose 121 mg/dL (70-99); Potassium 3.7 mmol/L (3.3-5.1)
== END | disposition home or self-care (01) ==
LOC: MFPLAB 08:27
PROVIDERS: PCP Family Medicine; Visit Provider Family Medicine
DX: I10 Essential (primary) hypertension (principal)
CPT/HCPCS: 36415; 80053